=== PATIENT | female | born 1955 | race Caucasian/White ===

== ENCOUNTER 2016-10-04 13:13 | Inpatient (IN) | payer OTHER ==
--- NOTE | 2016-10-04 14:12 | ED ---
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 Daughter states she lives at home currently with the patient's but is unable to care for herself anymore. She has a history of dementia associated with Quitman's. She's been declining recently. She has had difficutly swallowing recently and decreased oral intake due to progression of the disease. The patient denies any chest pain or shortness of breath. She does have multiple bruises after her recent falls. Daughter states she fell 4 times today multiple times over the past few weeks. Daughter denies any known loss of consciousness with falls. She is not currently blood thinners. - Related Data Home Medications Medication Instructions Recorded Confirmed ALPRAZolam [Xanax] 1 mg PO TID 12/03/15 10/04/16 Venlafaxine HCl ER [Effexor Xr] 150 mg PO DAILY 12/03/15 10/04/16 Allergies Allergy/AdvReac Type Severity Reaction Status Date / Time Horse/Equine Containing Allergy Unknown Verified 10/04/16 13:56 Products Childhood Penicillins Allergy Unknown Verified 10/04/16 13:56 Childhood Review of Systems ROS Statement: Those systems with pertinent positive or pertinent negative responses have been documented in the HPI. ROS Other: All systems not noted in ROS Statement are negative. Past Medical History Additional Past Medical History / Comment(s): Quitman's History of Any Multi-Drug Resistant Organisms: None Reported Past Surgical History: Appendectomy, Bariatric Surgery, Cholecystectomy, Orthopedic Surgery, Tubal Ligation Past Psychological History: Anxiety Smoking Status: Current every day smoker Past Alcohol Use History: None Reported Past Drug Use History: None Reported General Exam - General Exam Comments Initial Comments: General: Awake and Alert. No acute distress. Does not appear acutely ill. Appears older than stated age. Eyes: MISBAH, EOM intact. No nystagmus. No scleral icterus. HENT: Atraumatic, normocephalic. Mucous membranes moist. Trachea midline. No hemotympanum. No epistaxis or septal hematoma. Neck: The neck is supple, there is no JVD. No posterior neck tenderness. Cardiovascular: Regular rate and rhythm. No murmur, rub, or gallop is appreciated. Distal pulses intact. Respiratory: Lungs are clear to auscultation bilaterally. No wheezes, rales, rhonchi. No respiratory distress. Gastrointestinal: Soft, Nontender. No rebound or guarding. Non-distended. No masses or organomegaly noted. No CVA tenderness. Musculoskeletal: No tenderness. Normal ROM. No gross deformity. No strength deficits. Neurological: A&Ox2 - baseline per daughter. CN II-XII grossly intact, There are no obvious motor or sensory deficits. Coordination appears grossly intact. Speech is normal. Mild choreiform movements of the right upper extremity and face. Skin: Skin is warm and dry and no rashs. There are multiple bruises over the body. She has a bruise to her right chin as well as her left forehead with small hematoma associated. Psychiatric: Cooperative, appropriate mood & affect, normal judgment. Limitations: physical limitation Course Vital Signs 10/04/16 10/04/16 13:20 14:19 Temperature 98.1 F 97.2 F L Pulse Rate 83 73 Respiratory 18 16 Rate Blood Pressure 118/59 134/68 O2 Sat by Pulse 95 99 Oximetry EKG Findings - EKG Comments: EKG Findings:: EKG 15:13. Sinus rhythm. Rate 72. Normal axis. No STEMI. Nonspecific EKG. Medical Decision Making - Medical Decision Making 60-year-old female with history of Quitman's chorea presenting after multiple falls at home. Daughter states she had 4 falls at home today. She's had other falls over the past few weeks as well. She has several contusions on her head likely secondary to recent falls. No evidence of gross deformity on MSK exam. Patient denies any active pain at this time but is a poor historian secondary to her dementia. She does not appear to meet for trauma activation at this time. Lab work was stable CBC, stable BMP. Initial troponin negative. Chest x-ray no acute process. Evidence of prior right rib injury. CT head reviewed with left cerebellar meningioma which appears similar to prior CT head. No acute intracranial hemorrhage. Due to worsening condition, decline in ability to swallow, and unstable gait, plan for admission. I spoke with Dr. Shah, agrees with plan for admission. - Lab Data Result diagrams: 10/04/16 14:20 10/04/16 14:20 Lab Results 10/04/16 10/04/16 10/04/16 Range/Units 14:20 14:20 14:20 WBC 8.3 (3.8-10.6) k/uL RBC 4.05 (3.80-5.40) m/uL Hgb 12.2 (11.4-16.0) gm/dL Hct 38.9 (34.0-46.0) % MCV 96.1 (80.0-100.0) fL MCH 30.1 (25.0-35.0) pg MCHC 31.3 (31.0-37.0) g/dL RDW 14.1 (11.5-15.5) % Plt Count 327 (150-450) k/uL Neutrophils % 66 % Lymphocytes % 23 % Monocytes % 7 % Eosinophils % 2 % Basophils % 1 % Neutrophils # 5.5 (1.3-7.7) k/uL Lymphocytes # 1.9 (1.0-4.8) k/uL Monocytes # 0.5 (0-1.0) k/uL Eosinophils # 0.2 (0-0.7) k/uL Basophils # 0.1 (0-0.2) k/uL Hypochromasia Slight Sodium 141 (137-145) mmol/L Potassium 4.2 (3.5-5.1) mmol/L Chloride 108 H (98-107) mmol/L Carbon Dioxide 27 (22-30) mmol/L Anion Gap 6 mmol/L BUN 18 H (7-17) mg/dL Creatinine 0.55 (0.52-1.04) mg/dL Est GFR (MDRD) Af Amer >60 (>60 ml/min/1.73 sqM) Est GFR (MDRD) Non-Af >60 (>60 ml/min/1.73 sqM) Glucose 78 (74-99) mg/dL Calcium 8.7 (8.4-10.2) mg/dL Troponin I <0.012 (0.000-0.034) ng/mL - EKG Data -: EKG Interpreted by Me EKG shows normal: sinus rhythm Rate: normal - Radiology Data Radiology results: report reviewed, image reviewed Disposition Clinical Impression: Unsteady gait, Fall, Quitman chorea, Dementia, Head contusion, Dysphagia Disposition: ADMITTED IP TO THIS [facility] Condition: Stable Decision to Admit Reason: Admit from EC
[2016-10-04 14:37] LABS: Basophils # (A) 0.1 k/uL (0-0.2); Basophils % (A) 1 %; CH 29.8; CHCM 31.1; Eosinophils # (A) 0.2 k/uL (0-0.7); Eosinophils % (A) 2 %; HCT 38.9 % (34.0-46.0); HDW 2.52; HGB 12.2 gm/dL (11.4-16.0); Hypochromasia Slight; Luc % (Auto) 1; Lymphocytes # (A) 1.9 k/uL (1.0-4.8); Lymphocytes % (A) 23 %; MCH 30.1 pg (25.0-35.0); MCHC 31.3 g/dL (31.0-37.0); MCV 96.1 fL (80.0-100.0); Mean Platelet Volume 7.1; Monocytes # (A) 0.5 k/uL (0-1.0); Monocytes % (A) 7 %; Neutrophils # (A) 5.5 k/uL (1.3-7.7); Neutrophils % (A) 66 %; RBC 4.05 m/uL (3.80-5.40); RDW 14.1 % (11.5-15.5); WBC 8.3 k/uL (3.8-10.6); WBC (Perox) 8.29
[2016-10-04] MEDS ORDERED: ASPIRIN 81 MG CHEW PO STA ×2 (14:38→15:40)
[2016-10-04 14:49] LABS: Anion Gap 6 mmol/L; Blood Urea Nitrogen 18 mg/dL (7-17); Calcium 8.7 mg/dL (8.4-10.2); Carbon Dioxide 27 mmol/L (22-30); Chloride 108 mmol/L (98-107); Glucose 78 mg/dL (74-99); Non-African American GFR(MDRD) >60 (>60 ml/min/1.73 sqM); Potassium 4.2 mmol/L (3.5-5.1); Sodium 141 mmol/L (137-145)
--- NOTE | 2016-10-04 15:03 | CT ---
EXAMINATION TYPE: CT brain wo con DATE OF EXAM: 10/04/2016 2:49 PM HISTORY: Fall with Left frontal injury CT DLP: 1108.4 mGycm. Automated Exposure Control for Dose Reduction was Utilized. TECHNIQUE: CT scan of the head is performed without contrast. COMPARISON: CT scan of brain December 03, 2015.. FINDINGS: There is no acute intracranial hemorrhage or midline shift identified. There is diffuse v entricular and sulcal prominence consistent with diffuse age-related cerebral atrophy. There is low- attenuation in the periventricular white matter consistent with chronic small vessel ischemic change. There is partially calcified left cerebellar extra-axial mass causing scalloping of the inner david n of the calvarium, probable meningioma measuring 1.1 x 1.2 cm on axial image 10 stable or slightly l ess prominent versus prior study. Possible more superior hyperdense lesion on prior study is less wel l-seen on current study. Both lesions can be better assessed with MRI if desired. Fourth ventricle re panchito midline on current study. The globes are intact and the visualized sinuses are clear. The helder varium is intact. Hyperostosis frontalis is redemonstrated. IMPRESSION: No acute intracranial hemorrhage or midline shift. There is mild to moderate diffuse ag e-related cerebral atrophy and mild chronic small vessel ischemic change redemonstrated without signi ficant change from prior study seen. Probable posterior fossa meningioma(s) redemonstrated, MRI follo w-up or correlation advised if has not been performed at outside institution.
--- NOTE | 2016-10-04 15:09 | XR ---
EXAMINATION TYPE: XR chest 2V DATE OF EXAM: 10/04/2016 3:02 PM COMPARISON: 12/03/2015 TECHNIQUE: PA and lateral views submitted. HISTORY: Cough FINDINGS: The lungs are clear and there is no pneumothorax, pleural effusion, or focal pneumonia. Chronic rib deformity on the right noted. The heart is prominent. No overt failure. Hypertrophic change of the s pine noted. IMPRESSION: 1. No acute process. 2. Deformity of the right posterior rib cage likely the basis of previous trauma correlate clinically to exclude osseous lesion. Not clearly seen on previous chest x-ray.
[2016-10-04] MEDS ORDERED: NALOXONE 0.4 MG/ML 1 ML VIAL IV PRN (16:16)
[2016-10-04] MEDS ORDERED: MORPHINE SULFATE 4 MG/ML SYRINGE IV PRN (16:16)
[2016-10-04] MEDS ORDERED: ONDANSETRON 4 MG/2 ML VIAL IVP PRN (16:16)
[2016-10-04 18:07] VITALS: BMI 27.3
[2016-10-04 18:27] LABS: Appearance,Urine Clear (Clear); Bacteria,Urine Rare /hpf; Bilirubin,Urine Negative (Negative); Glucose,Urine (UA) Negative (Negative); Ketones,Urine Negative (Negative); Leukocyte Esterase,Urine Negative (Negative); Mucus,Urine Rare /hpf; Nitrite,Urine Negative (Negative); PH, Urine 5.5 (5.0-8.0); Particle Count 1503; Protein,Urine Negative (Negative); RBC,Urine 1 /hpf (0-5); Specific Gravity,Urine 1.008 (1.001-1.035); Squamous Epithelial Cell,Urine 2 /hpf (0-4); UA Billing (MACRO vs. MICRO) MICRO; Urobilinogen,Urine <2.0 mg/dL (<2.0)
[2016-10-04] MEDS: VENLAFAXINE HCL ER 150 MG CAP PO SCH (19:34)
[2016-10-04] MEDS: ALPRAZolam 0.5 MG TAB PO SCH ×2 (19:34→22:00)
[2016-10-04] MEDS: SODIUM CHLORIDE 0.9% 1,000 ML IV SCH (19:47)
[2016-10-04] MEDS: KETOROLAC 30 MG/ML 1 ML VIAL IVP PRN (21:17)
[2016-10-05] MEDS: HEPARIN SODIUM,PORCINE 5,000 UNIT/ML 1 ML VIAL SQ SCH ×4 (00:16→23:28)
[2016-10-05] MEDS: ALPRAZolam 0.5 MG TAB PO SCH ×3 (09:22→21:51)
[2016-10-05] MEDS: NICOTINE 14MG/24HR PATCH TRANSDERM SCH ×2 (09:22→09:23)
[2016-10-05] MEDS: VENLAFAXINE HCL ER 150 MG CAP PO SCH (09:22)
[2016-10-05 09:58] LABS: Basophils # (A) 0.1 k/uL (0-0.2); Basophils % (A) 1 %; CH 29.8; CHCM 31.2; Eosinophils # (A) 0.2 k/uL (0-0.7); Eosinophils % (A) 3 %; HCT 37.2 % (34.0-46.0); HDW 2.53; HGB 11.4 gm/dL (11.4-16.0); Hypochromasia Slight; Luc # (Auto) 0.12; Luc % (Auto) 2; Lymphocytes # (A) 1.4 k/uL (1.0-4.8); Lymphocytes % (A) 19 %; MCH 29.5 pg (25.0-35.0); MCHC 30.7 g/dL (31.0-37.0); MCV 96.1 fL (80.0-100.0); Mean Platelet Volume 6.8; Monocytes # (A) 0.5 k/uL (0-1.0); Monocytes % (A) 7 %; Neutrophils # (A) 5.2 k/uL (1.3-7.7); Neutrophils % (A) 70 %; RBC 3.87 m/uL (3.80-5.40); RDW 13.9 % (11.5-15.5); WBC 7.5 k/uL (3.8-10.6)
[2016-10-05 10:20] LABS: Anion Gap 6 mmol/L; Blood Urea Nitrogen 12 mg/dL (7-17); Calcium 8.5 mg/dL (8.4-10.2); Carbon Dioxide 25 mmol/L (22-30); Chloride 108 mmol/L (98-107); Glucose 63 mg/dL (74-99); Magnesium 2.1 mg/dL (1.6-2.3); Non-African American GFR(MDRD) >60 (>60 ml/min/1.73 sqM); Phosphorous 3.5 mg/dL (2.5-4.5); Potassium 4.4 mmol/L (3.5-5.1); Sodium 139 mmol/L (137-145)
[2016-10-05] MEDS: KETOROLAC 30 MG/ML 1 ML VIAL IVP PRN ×2 (11:24→18:25)
--- NOTE | 2016-10-05 14:13 | P.HPIM ---
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 Daughter states she lives at home currently with the patient's but is unable to care for herself anymore. She has a history of dementia associated with Loving's. She's been declining recently. She has had difficulty swallowing recently and decreased oral intake due to progression of the disease. On review of systems The patient denies any chest pain or shortness of breath. She does have multiple bruises after her recent falls. Daughter states she fell 4 times today multiple times over the past few weeks. Daughter denies any known loss of consciousness with falls. She is not currently on blood thinners. Past Medical History Past Medical History: Eye Disorder, Memory Impairment, Musculoskeletal Disorder (Loving disease), Neurologic Disorder Additional Past Medical History / Comment(s): Rosenda's History of Any Multi-Drug Resistant Organisms: None Reported Past Surgical History: Appendectomy, Bariatric Surgery, Cholecystectomy, Hernia Repair, Hysterectomy, Orthopedic Surgery, Tubal Ligation Additional Past Surgical History / Comment(s): steel plate and screws in ankle, removed Past Anesthesia/Blood Transfusion Reactions: No Reported Reaction Past Psychological History: Anxiety Smoking Status: Current every day smoker Past Alcohol Use History: None Reported Past Drug Use History: None Reported - Past Family History Mother Additional Family Medical History / Comment(s): kidney failure obesity Father Additional Family Medical History / Comment(s): huntingtons Medications and Allergies Home Medications Medication Instructions Recorded Confirmed Type ALPRAZolam [Xanax] 1 mg PO TID 12/03/15 10/04/16 History Venlafaxine HCl ER [Effexor Xr] 150 mg PO DAILY 12/03/15 10/04/16 History Allergies Allergy/AdvReac Type Severity Reaction Status Date / Time Horse/Equine Containing Allergy Unknown Verified 10/04/16 13:56 Products Childhood Penicillins Allergy Unknown Verified 10/04/16 13:56 Childhood Physical Exam Vitals: Vital Signs Temp Pulse Pulse Resp BP BP Pulse Ox 10/05/16 07:00 96.7 F L 88 20 89/60 94 L 10/04/16 23:00 97.0 F L 58 L 18 111/60 96 10/04/16 14:19 97.2 F L 73 16 134/68 99 Intake and Output 10/04/16 10/05/16 10/05/16 22:59 06:59 14:59 Intake Total 540 Balance 540 Intake: Oral 540 Other: Voiding Method Bedside Commode Bedside Commode Bedside Commode Diaper Diaper Diaper # Voids 1 2 1 # Bowel Movements 1 Weight 68 kg In general patient is alert and oriented 3 in no apparent distress, speech is hard to understand HEENT head normocephalic, there is a bruise on the lower lip to the right Neck is supple no JVD no goiter no lymphadenopathy Chest exam reveals a few scattered rhonchi no wheezing Cardiac exam reveals regular heart sounds S1 and S2 with mild tachycardia no gallops no murmurs Abdomen is soft nontender no organomegaly Extremity exam reveals no edema no cyanosis or clubbing, there is recurrent movements consistant with Loving disease Results CBC & Chem 7: 10/05/16 09:24 10/05/16 09:24 Labs: Abnormal Lab Results - Last 24 Hours (Table) 10/04/16 10/04/16 10/05/16 Range/Units 14:20 18:10 09:24 MCHC 30.7 L (31.0-37.0) g/dL Chloride 108 H (98-107) mmol/L BUN 18 H (7-17) mg/dL Creatinine (0.52-1.04) mg/dL Glucose (74-99) mg/dL Urine Blood Small H (Negative) Urine Bacteria Rare H (None) /hpf Urine Mucus Rare H (None) /hpf Urine Yeast (Budding) Rare H (None) /hpf 10/05/16 Range/Units 09:24 MCHC (31.0-37.0) g/dL Chloride 108 H (98-107) mmol/L BUN (7-17) mg/dL Creatinine 0.46 L (0.52-1.04) mg/dL Glucose 63 L (74-99) mg/dL Urine Blood (Negative) Urine Bacteria (None) /hpf Urine Mucus (None) /hpf Urine Yeast (Budding) (None) /hpf Microbiology - Last 24 Hours (Table) 10/04/16 18:10 Urine Culture - Preliminary Urine,Voided Thrombosis Risk Factor Assmnt - Choose All That Apply Any of the Below Risk Factors Present?: Yes Each Factor Represents 1 point: Age 41-60 years, Medical pt on bed rest, Obesity (BMI >25) Other Risk Factors: No Other congenital or acquired thrombophilia - If yes, enter type in comment: No Thrombosis Risk Factor Assessment Total Risk Factor Score: 3 Thrombosis Risk Factor Assessment Level: Moderate Risk Assessment and Plan Plan: #1 Rosenda Chorea #2 multiple falls at home #3 early dementia #4 difficulty with swallowing #5 physical debility #6 abnormal computed tomography scan of the brain was probable posterior fossa meningioma At this time will obtain x-ray of the right ribs to rule out fracture Consult physical therapy and occupational therapy Obtain swallow evaluation Patient may need to be transferred to a long term for care
--- NOTE | 2016-10-05 15:14 | XR ---
EXAMINATION TYPE: XR ribs RT DATE OF EXAM: 10/05/2016 2:56 PM COMPARISON: Chest x-ray 10/04/1967 HISTORY: Abnormal x-ray TECHNIQUE: 4 views submitted FINDINGS: There is a deformity involving the posterior right sixth rib. No destructive change. Remain ing osseous structures intact. IMPRESSION: Findings most typical of healed rib fracture.
[2016-10-05] MEDS: SODIUM CHLORIDE 0.9% 1,000 ML IV SCH (16:10)
[2016-10-06] MEDS: KETOROLAC 30 MG/ML 1 ML VIAL IVP PRN ×3 (02:34→16:09)
--- NOTE | 2016-10-06 08:56 | CONS ---
DATE OF CONSULTATION: 10/05/2016 CHIEF COMPLAINT: [place]'s chorea. HISTORY OF PRESENT ILLNESS: Mrs. Banerjee is a 60-year-old female who has history of Bergenfield's chorea. The patient has a long-standing history of significant choreiform movements and has been having worsening dementia symptoms over the past several years. The patient was brought into [facility] Emergency Room because she has been having multiple falls. She currently lives at home with her . The family has been unable to care for her. More recently, she has been having more confusion and difficulty swallowing. The patient has fallen 4 times over the past 2 weeks. According to the chart, no head injuries occurred. A CT scan of the brain was done, which showed generalized atrophy and small vessel ischemic changes. I did review the CT scan of the brain imaging and there is also significant atrophy of bilateral caudate nucleus, consistent with Rosenda's chorea. Her CBC, urinalysis, cardiac enzymes, and basic metabolic profile were all reviewed and were normal. At the time of my evaluation, the patient is lying in her bed and continues to have significant choreiform movements in all 4 extremities and in the face. She is currently on fall precautions and ambulates to the bathroom only with nursing assistance. PAST MEDICAL HISTORY: Rosenda's chorea, dementia, history of appendectomy, bariatric surgery, cholecystectomy, hernia repair, hysterectomy, tubal ligation, orthopedic surgeries, anxiety disorder. SOCIAL HISTORY: The patient is a current every day smoker. There is no history of any alcohol or drug use. FAMILY HISTORY: Positive for renal failure and Bergenfield's disease. HOME MEDICATIONS: Reviewed in the chart. ALLERGIES: PENICILLIN and EQUINE CONTAINING PRODUCTS. REVIEW OF SYSTEMS: As mentioned above and otherwise negative. PHYSICAL EXAM: Vital signs show a temperature of 96.1, pulse 76, respirations 20, blood pressure 114/59. GENERAL APPEARANCE: The patient is a well-developed female who has significant choreiform movements in all 4 extremities. HEENT: Normocephalic with superficial abrasions seen in the right chin and lip region. Neck is supple with no masses felt. CARDIOVASCULAR: Regular rate and rhythm. ABDOMEN: Nontender, nondistended. Extremities showed no edema or clubbing. NEUROLOGICAL EXAM: The patient is oriented to person and place. She could not recall the year. Speech is quite dysarthric. Choreiform movements are noticed in all 4 extremities and in the tongue and facial muscles. Muscle tone is increased. No seizure-like activity is seen. IMPRESSION: 1. Bergenfield's disease. 2. Worsening chorea. 3. Gait instability with recurrent falls. 4. Dementia. RECOMMENDATIONS: The patient's symptoms appear to have significantly progressed over the past several days. Her laboratory workup showed no significant abnormalities. She is having significant choreiform movements and her dementia symptoms are consistent with her diagnosis of Bergenfield's chorea as well. Unfortunately, the patient appears to be at the end stage of the disease and this is causing her recurrent falls. The patient will need senior living placement as the patient's family is unable to care for her appropriately. No further inpatient neurological workup is needed. Continue fall precautions. I will continue to follow with you as needed. Thank you for allowing me to participate in the care of your patient. If you have any questions, please feel free to contact me.
[2016-10-06] MEDS: ALPRAZolam 0.5 MG TAB PO SCH ×3 (10:01→21:21)
[2016-10-06] MEDS: NICOTINE 14MG/24HR PATCH TRANSDERM SCH (10:02)
[2016-10-06] MEDS: VENLAFAXINE HCL ER 150 MG CAP PO SCH (10:02)
[2016-10-06] MEDS: HEPARIN SODIUM,PORCINE 5,000 UNIT/ML 1 ML VIAL SQ SCH ×3 (10:02→23:40)
[2016-10-06 10:05] LABS: CH 29.9; CHCM 31.1; HCT 38.2 % (34.0-46.0); HDW 2.52; HGB 11.7 gm/dL (11.4-16.0); Hypochromasia Slight; MCH 29.6 pg (25.0-35.0); MCHC 30.7 g/dL (31.0-37.0); MCV 96.4 fL (80.0-100.0); RBC 3.96 m/uL (3.80-5.40); RDW 13.9 % (11.5-15.5); WBC 4.8 k/uL (3.8-10.6); WBC (Perox) 5.14
[2016-10-06 10:39] LABS: ALT 30 U/L (9-52); AST 31 U/L (14-36); Alkaline Phosphatase 107 U/L (38-126); Anion Gap 7 mmol/L; Blood Urea Nitrogen 9 mg/dL (7-17); Calcium 8.7 mg/dL (8.4-10.2); Carbon Dioxide 26 mmol/L (22-30); Chloride 106 mmol/L (98-107); Glucose 76 mg/dL (74-99); Non-African American GFR(MDRD) >60 (>60 ml/min/1.73 sqM); Potassium 4.6 mmol/L (3.5-5.1); Sodium 139 mmol/L (137-145); Total Bilirubin 0.5 mg/dL (0.2-1.3); Total Protein 5.8 g/dL (6.3-8.2)
[2016-10-06 13:25] LABS: Add Differential Manual Differential
[2016-10-06 13:27] LABS: Nucleated Red Blood Cells 0 /100 WBC (0-0); Total Cells Counted 100
[2016-10-06] MEDS: SODIUM CHLORIDE 0.9% 1,000 ML IV SCH (17:25)
[2016-10-07] MEDS: ALPRAZolam 0.5 MG TAB PO SCH ×3 (07:58→21:59)
[2016-10-07] MEDS: HEPARIN SODIUM,PORCINE 5,000 UNIT/ML 1 ML VIAL SQ SCH ×2 (07:58→16:08)
[2016-10-07] MEDS: NICOTINE 14MG/24HR PATCH TRANSDERM SCH (07:58)
[2016-10-07] MEDS: VENLAFAXINE HCL ER 150 MG CAP PO SCH (07:58)
--- NOTE | 2016-10-07 12:53 | P.DS ---
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 Daughter states she lives at home currently with the patient's but is unable to care for herself anymore. She has a history of dementia associated with [place]'s. She's been declining recently. She has had difficulty swallowing recently and decreased oral intake due to progression of the disease. On review of systems The patient denies any chest pain or shortness of breath. She does have multiple bruises after her recent falls. Daughter states she fell 4 times today multiple times over the past few weeks. Daughter denies any known loss of consciousness with falls. She is not currently on blood thinners. Computed tomography scan of the brain showed no acute intracranial hemorrhage or midline shift. There is mild to moderate diffuse age-related cerebral atrophy and mild chronic vessel ischemic change. Probable posterior fossa meningioma redemonstrated. Patient was seen evaluated by neurology. They reported significant cordiform movements and heard dementia symptoms are consistent with her diagnosis of [place]'s rafia. And patient appears to be at the end stage of her disease which is causing her recurrent falls. They did recommend alf placement. They do not have any further workup or medications recommended. Patient had no sniffing inhalants abnormalities in her lab work. She was evaluated by speech therapy and they're recommending an alternate diet is pured dysphagia. Patient has been up and ambulating. She'll be discharged to [facility]. We're currently waiting on insurance prior authorization. Otherwise she is medically stable and his been cleared by neurology. X-ray of the ribs were completed and it does reveal a healed fracture no acute fractures. Patient Condition at Discharge: Stable Plan - Discharge Summary New Discharge Prescriptions: ALPRAZolam [Xanax] 1 mg PO TID #90 Discharge Medication List Venlafaxine HCl ER [Effexor XR] 150 mg PO DAILY 12/03/15 [History] ALPRAZolam [Xanax] 1 mg PO TID #90 10/07/16 [Rx] Nicotine 14Mg/24Hr Patch [Habitrol] 1 patch TRANSDERM DAILY patch 10/07/16 [Rx] Follow up Appointment(s)/Referral(s): Eli Lowe DO [Primary Care Provider] - 1 Week Activity/Diet/Wound Care/Special Instructions: Diet: pured dysphagia 1 diet Activity as tolerated Patient will be discharged to [facility]. Dr. Lopez to follow at [facility]CF Discharge Disposition: TRANSFER TO SNF/ECF
[2016-10-07] MEDS: SODIUM CHLORIDE 0.9% 1,000 ML IV SCH (16:34)
[2016-10-07] MEDS: KETOROLAC 30 MG/ML 1 ML VIAL IVP PRN (18:12)
[2016-10-08] MEDS: HEPARIN SODIUM,PORCINE 5,000 UNIT/ML 1 ML VIAL SQ SCH ×4 (00:03→23:12)
[2016-10-08] MEDS: KETOROLAC 30 MG/ML 1 ML VIAL IVP PRN ×2 (04:31→23:10)
[2016-10-08] MEDS: ALPRAZolam 0.5 MG TAB PO SCH ×3 (09:07→23:10)
[2016-10-08] MEDS: VENLAFAXINE HCL ER 150 MG CAP PO SCH (09:07)
[2016-10-08] MEDS: ACETAMINOPHEN TAB 325 MG TAB PO PRN (09:07)
[2016-10-08] MEDS: NICOTINE 14MG/24HR PATCH TRANSDERM SCH (09:08)
--- NOTE | 2016-10-08 15:13 | P.PN ---
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 Daughter states she lives at home currently with the patient's but is unable to care for herself anymore. She has a history of dementia associated with [place]'s. She's been declining recently. She has had difficulty swallowing recently and decreased oral intake due to progression of the disease. Computed tomography scan of the brain showed no acute intracranial hemorrhage or midline shift. There is mild to moderate diffuse age-related cerebral atrophy and mild chronic vessel ischemic change. Probable posterior fossa meningioma redemonstrated. Patient was seen evaluated by neurology. They reported significant cordiform movements and heard dementia symptoms are consistent with her diagnosis of [place]'s rafia. And patient appears to be at the end stage of her disease which is causing her recurrent falls. They did recommend [facility] placement. They do not have any further workup or medications recommended. Patient was initially discharged yesterday to go to [facility]. However both [facility] and [facility] refused long-term placement for patient because her insurance refused to pay. Patient's family is unable to provide care for patient. Social work is involved working on placement Objective - Vital Signs Vital signs: Vital Signs Temp 97.4 F L 10/08/16 07:00 Pulse 55 L 10/08/16 07:00 Resp 18 10/08/16 07:00 BP 102/56 10/08/16 07:00 Pulse Ox 96 10/08/16 07:00 Intake & Output 10/07/16 10/08/16 10/08/16 18:59 06:59 18:59 Intake Total 360 Balance 360 Weight 68 kg Intake: Oral 360 Other: Voiding Method Bedside Commode Bedside Commode Bedside Commode Diaper Diaper Diaper # Voids 2 2 1 # Bowel Movements 0 - Exam HEENT redness and swelling noted along the lower lip to the right Head normocephalic Neck supple Lungs clear to auscultation bilaterally no wheezing or crackles Heart regular rate and rhythm S1-S2, no rub or gallop Abdomen is soft nontender nondistended positive bowel sounds no hepatosplenomegaly Extremities no edema Neuro alert and orientated to 3. Recurrent movements consistent with Middlefield 's disease - Labs CBC & Chem 7: 10/06/16 09:28 10/06/16 09:28 Assessment and Plan Plan: #1 [place] Chorea #2 multiple falls at home #3 early dementia #4 difficulty with swallowing #5 physical debility #6 abnormal computed tomography scan of the brain was probable posterior fossa meningioma. Evaluated by neurology #7 area of cellulitis below the right lip kiel Melgar Working on placement for patient I performed an examination of the patient and discussed their management with the physician Java Designer. I have reviewed the Physician Java Designer's notes and agree with the documented findings and plan of care
[2016-10-08] MEDS: SODIUM CHLORIDE 0.9% 1,000 ML IV SCH (15:44)
[2016-10-09] MEDS: HEPARIN SODIUM,PORCINE 5,000 UNIT/ML 1 ML VIAL SQ SCH ×3 (07:58→23:22)
[2016-10-09] MEDS: ALPRAZolam 0.5 MG TAB PO SCH ×4 (07:58→21:37)
[2016-10-09] MEDS: VENLAFAXINE HCL ER 150 MG CAP PO SCH (07:58)
[2016-10-09] MEDS: NICOTINE 14MG/24HR PATCH TRANSDERM SCH (08:01)
--- NOTE | 2016-10-09 09:45 | P.PN ---
Subjective 60-year-old female seen and evaluated. No new events. 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 Nursing reports patient has poor IV access. 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 Daughter states she lives at home currently with the patient's but is unable to care for herself anymore. history of dementia associated with Rosenda's. She's been declining recently. She has had difficulty swallowing recently and decreased oral intake due to progression of the disease. Computed tomography scan of the brain showed no acute intracranial hemorrhage or midline shift. There is mild to moderate diffuse age-related cerebral atrophy and mild chronic vessel ischemic change. Probable posterior fossa meningioma redemonstrated. Patient was seen evaluated by neurology. They reported significant cordiform movements and heard dementia symptoms are consistent with her diagnosis of Rockcastle's rafia. And patient appears to be at the end stage of her disease which is causing her recurrent falls. They did recommend prison placement. They do not have any further workup or medications recommended. Patient was initially discharged october 07 to go to [facility]. However both [facility] and [facility] refused long-term placement for patient because her insurance refused to pay. Patient's family is unable to provide care for patient. Social work is involved working on placement Objective - Vital Signs Vital signs: Vital Signs Temp 98.2 F 10/09/16 07:00 Pulse 64 10/09/16 07:00 Resp 22 10/09/16 07:00 BP 110/74 10/09/16 07:00 Pulse Ox 95 10/09/16 07:00 Intake & Output 10/08/16 10/09/16 10/09/16 18:59 06:59 18:59 Intake Total 600 240 Balance 600 240 Intake: Oral 600 240 Other: Voiding Method Bedside Commode Bedside Commode Diaper Diaper # Voids 1 2 # Bowel Movements 0 - Exam Physical exam 60-year-old female looking older than stated age resting in bed opens eyes to verbal stimuli HEENT redness and swelling along the right lower lip improving Lungs essentially clear adequate air movement heart S1-S2 audible and regular Abdomen soft nontender not distended bowel tones present Extremities no edema noted - Labs CBC & Chem 7: 10/06/16 09:28 10/06/16 09:28 Assessment and Plan Plan: Impression Rockcastle Chorea #2 multiple falls at home #3 early dementia #4 difficulty with swallowing #5 physical debility #6 abnormal computed tomography scan of the brain was probable posterior fossa meningioma. 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 Impression and the plan of care have been dictated as directed. Teresita Perez nurse practitioner acting as a scribe for dr masterson
[2016-10-09] MEDS: ACETAMINOPHEN TAB 325 MG TAB PO PRN (16:41)
[2016-10-09] MEDS: SODIUM CHLORIDE 0.9% 1,000 ML IV SCH (16:48)
[2016-10-09] MEDS: CEFUROXIME 250 MG TAB PO SCH (21:36)
[2016-10-10] MEDS: CEFUROXIME 250 MG TAB PO SCH (08:46)
[2016-10-10] MEDS: VENLAFAXINE HCL ER 150 MG CAP PO SCH (08:46)
[2016-10-10] MEDS: HEPARIN SODIUM,PORCINE 5,000 UNIT/ML 1 ML VIAL SQ SCH ×2 (08:46→16:59)
[2016-10-10] MEDS: NICOTINE 14MG/24HR PATCH TRANSDERM SCH (08:46)
[2016-10-10] MEDS: ALPRAZolam 0.5 MG TAB PO SCH ×3 (08:46→16:59)
--- NOTE | 2016-10-10 09:24 | P.PN ---
Subjective 60-year-old female being seen and evaluated. Patient currently is resting in bed. The right lower chin area firm with significant tenderness less redness around the site upon touching the right lower chin area patient pulls away facial grimacing did note the patient ran a low-grade temp at 3:00 yesterday 99.2 current temp 97.8. 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 Daughter states she lives at home currently with the patient's but is unable to care for herself anymore. history of dementia associated with Bigfoot's. She's been declining recently. She has had difficulty swallowing recently and decreased oral intake due to progression of the disease. Computed tomography scan of the brain showed no acute intracranial hemorrhage or midline shift. There is mild to moderate diffuse age-related cerebral atrophy and mild chronic vessel ischemic change. Probable posterior fossa meningioma redemonstrated. Patient was seen evaluated by neurology. They reported significant cordiform movements and heard dementia symptoms are consistent with her diagnosis of Bigfoot's rafia. And patient appears to be at the end stage of her disease which is causing her recurrent falls. They did recommend [facility] placement. They do not have any further workup or medications recommended. Patient was initially discharged october 07 to go to [facility]. However both [facility] and [facility] refused long-term placement for patient because her insurance refused to pay. Patient's family is unable to provide care for patient. Social work is involved working on placement Objective - Vital Signs Vital signs: Vital Signs Temp 97.8 F 10/10/16 07:00 Pulse 54 L 10/10/16 07:00 Resp 20 10/10/16 07:00 BP 133/69 10/10/16 07:00 Pulse Ox 96 10/10/16 07:00 Intake & Output 10/09/16 10/10/16 10/10/16 18:59 06:59 18:59 Intake Total 480 300 120 Balance 480 300 120 Intake: Oral 480 300 120 Other: Voiding Method Bedside Commode Bedside Commode # Voids 2 1 - Exam Physical exam 60-year-old female looking older than stated age resting in bed opens eyes to verbal stimuli HEENT significant tenderness to the right lower chin nodule area swollen less redness around the site facial grimacing with light touch to the site Lungs essentially clear adequate air movement heart S1-S2 audible and regular Abdomen soft nontender not distended bowel tones present Extremities no edema noted - Labs CBC & Chem 7: 10/06/16 09:28 10/06/16 09:28 Assessment and Plan Plan: Impression Bigfoot Chorea #2 multiple falls at home #3 early dementia #4 difficulty with swallowing #5 physical debility #6 abnormal computed tomography scan of the brain was probable posterior fossa meningioma. 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 Impression and the plan of care have been dictated as directed. Teresita Perez nurse practitioner acting as a scribe for dr masterson
--- NOTE | 2016-10-10 12:49 | P.CONS ---
History of Present Illness - Reason for Consult Consult date: 10/10/16 - Chief Complaint Weakness and falls - History of Present Illness 60-year-old female with known history of Rosenda's chorea diagnosed back when she was in her 30s. She's had some consistent decline of her status but apparently more recently has been having increasing amounts of choreiform movements resulting in falls. She's also developed some worsening dementia. She was brought to hospital with concerns to falls, swelling to the right lower lip area which is painful. Decreasing intake. Increasing weakness. She has been seen by neurology and review the computed tomography scan does show evidence of the caudate nucleus atrophy. Because of the swelling and infection to the right lower lip at the infectious diseases consultation was requested. The patient is able to relate only little history. Review of Systems ROS unobtainable: due to mental status Past Medical History Past Medical History: Eye Disorder, Memory Impairment, Musculoskeletal Disorder (Rosenda disease), Neurologic Disorder Additional Past Medical History / Comment(s): Nelson's History of Any Multi-Drug Resistant Organisms: None Reported Past Surgical History: Appendectomy, Bariatric Surgery, Cholecystectomy, Hernia Repair, Hysterectomy, Orthopedic Surgery, Tubal Ligation Additional Past Surgical History / Comment(s): steel plate and screws in ankle, removed Past Anesthesia/Blood Transfusion Reactions: No Reported Reaction Past Psychological History: Anxiety Additional Psychological History / Comment(s): Positive tobacco use. No alcohol use. Cared for in the family home by the and caregivers. It is reported that is not going well. No animal exposures. No experience. No work experience Smoking Status: Current every day smoker Past Alcohol Use History: None Reported Past Drug Use History: None Reported - Past Family History Mother Additional Family Medical History / Comment(s): kidney failure obesity Father Additional Family Medical History / Comment(s): huntingtons Medications and Allergies Home Medications and Allergies Comment(s): Current Medications Acetaminophen (Tylenol Tab) 650 mg PO Q6HR PRN PRN Reason: Mild Pain or Fever > 100.5 Last Admin: 10/09/16 16:41 Dose: 650 mg Alprazolam (Xanax) 1 mg PO QID [facility] Last Admin: 10/10/16 08:46 Dose: 1 mg Heparin Sodium (Porcine) (Heparin) 5,000 unit SQ Q8HR [facility] Last Admin: 10/10/16 08:46 Dose: 5,000 unit Sodium Chloride (Saline 0.9%) 1,000 mls @ 20 mls/hr IV .Q24H [facility] Last Admin: 10/09/16 16:48 Dose: Not Given Ertapenem 1 gm/ Sodium (Chloride) 50 mls @ 100 mls/hr IVPB DAILY [facility] Naloxone HCl (Narcan) 0.2 mg IV Q2M PRN PRN Reason: Opioid Reversal Nicotine (Habitrol 14mg/24hr Patch) 1 patch TRANSDERM DAILY [facility] Last Admin: 10/10/16 08:46 Dose: Not Given Ondansetron HCl (Zofran) 4 mg IVP Q8HR PRN PRN Reason: Nausea And Vomiting Venlafaxine HCl (Effexor Xr) 150 mg PO DAILY [facility] Last Admin: 10/10/16 08:46 Dose: 150 mg Home Medications Medication Instructions Recorded Confirmed Type Venlafaxine HCl ER [Effexor XR] 150 mg PO DAILY 12/03/15 10/04/16 History Allergies Allergy/AdvReac Type Severity Reaction Status Date / Time Horse/Equine Containing Allergy Unknown Verified 10/04/16 13:56 Products Childhood Penicillins Allergy Unknown Verified 10/04/16 13:56 Childhood Physical Exam Vitals: Vital Signs Temp Pulse Resp BP Pulse Ox 10/10/16 07:00 97.8 F 54 L 20 133/69 96 10/09/16 23:00 96.7 F L 58 L 20 100/66 95 10/09/16 15:00 99.2 F 76 22 92/63 97 Intake and Output 10/09/16 10/10/16 10/10/16 22:59 06:59 14:59 Intake Total 200 100 120 Balance 200 100 120 Intake: Oral 200 100 120 Other: Voiding Method Bedside Commode Bedside Commode Bedside Commode # Voids 1 2 # Bowel Movements 0 60-year-old woman who appears to be older than her stated age appears to be uncomfortable. HEENT: Anicteric conjunctiva are pink and moist nasal mucosa grossly intact without significant lesions, there is no thrush. Dentition is very poor. There is evidence of a significant area of localized swelling on the right lower lip. It is distinctly tender. It is not fluctuant. There HE does not have thrush or lesions. There is no significant swelling to the right neck. There is no lymphadenopathy to the right neck and her other areas. Neck: The neck is supple without significant lymphadenopathy or thyromegaly. Lungs: There is symmetrical air entry. Expiratory wheezes are scattered. No karel bronchial sounds. No dullness is noted Heart: Regular rate and rhythm with an audible S1-S2, no S3 no S4. There is no significant murmur click or rub, PMI was nondisplaced. Abdomen: Positive bowel sounds soft and nontender without palpable masses or organomegaly. There was no guarding or rebound. Extremities: The upper extremities have excellent pulses they are symmetric, no significant petechiae or telangiectasia. No splinter hemorrhages were noted. The lower extremities are free from significant edema. The peripheral pulses were 2+ and symmetric. Neuro: She is awake attempts to respond. Occasionally seems to generate an answer that seems appropriate for the question. She is hungry and would like her lunch. She appears in no difficulty of choking on her secretions. Does have the difficulty with coronary form motions of her face neck and extremities. Results CBC & Chem 7: 10/06/16 09:28 10/06/16: Labs: Laboratory Results WBC 4.8 k/uL (3.8-10.6) 10/06/16: RBC 3.96 m/uL (3.80-5.40) 10/06/16: Hgb 11.7 gm/dL (11.4-16.0) 10/06/16: Hct 38.2 % (34.0-46.0) 10/06/16: MCV 96.4 fL (80.0-100.0) 10/06/16: MCH 29.6 pg (25.0-35.0) 10/06/16: MCHC 30.7 g/dL (31.0-37.0) L 10/06/16: RDW 13.9 % (11.5-15.5) 10/06/16: Plt Count 305 k/uL (150-450) 10/06/16 09: Neutrophils % 70 % 10/05/16 09:24 Neutrophils % (Manual) 54.0 % 10/06/16:28 Lymphocytes % 19 % 10/05/16:24 Lymphocytes % (Manual) 36.0 % 05/17/17 09:28 Monocytes % 7 % 10/05/16 09:24 Monocytes % (Manual) 6.0 % 10/06/16 09:28 Eosinophils % 3 % 10/05/16 09:24 Eosinophils % (Manual) 4.0 % 10/06/16 09:28 Basophils % 1 % 10/05/16 09:24 Neutrophils # 5.2 k/uL (1.3-7.7) 10/05/16 09:24 Neutrophils # (Manual) 2.6 k/uL (1.3-7.7) 10/06/16 09:28 Lymphocytes # 1.4 k/uL (1.0-4.8) 10/05/16 09:24 Lymphocytes # (Manual) 1.7 k/uL (1.0-4.8) 10/06/16 09:28 Monocytes # 0.5 k/uL (0-1.0) 10/05/16 09:24 Monocytes # (Manual) 0.3 k/uL (0-1.0) 10/06/16 09:28 Eosinophils # 0.2 k/uL (0-0.7) 10/05/16 09:24 Eosinophils # (Manual) 0.2 k/uL (0-0.7) 10/06/16 09:28 Basophils # 0.1 k/uL (0-0.2) 10/05/16 09:24 Nucleated RBCs 0 /100 WBC (0-0) 10/06/16 09:28 Hypochromasia Slight 10/06/16 09:28 Poikilocytosis (manual Present 10/06/16 09:28 Anisocytosis (manual) Present 10/06/16 09:28 Sodium 139 mmol/L (137-145) 10/06/16 09:28 Potassium 4.6 mmol/L (3.5-5.1) 10/06/16 09:28 Chloride 106 mmol/L (98-107) 10/06/16 09:28 Carbon Dioxide 26 mmol/L (22-30) 10/06/16 09:28 Anion Gap 7 mmol/L 10/06/16 09:28 BUN 9 mg/dL (7-17) 10/06/16 09:28 Creatinine 0.44 mg/dL (0.52-1.04) L 10/06/16 09:28 Est GFR (MDRD) Af Amer >60 (>60 ml/min/1.73 sqM) 10/06/16 09:28 Est GFR (MDRD) Non-Af >60 (>60 ml/min/1.73 sqM) 10/06/16 09:28 Glucose 76 mg/dL (74-99) 10/06/16 09:28 Calcium 8.7 mg/dL (8.4-10.2) 10/06/16 09:28 Phosphorus 3.5 mg/dL (2.5-4.5) 10/05/16 09:24 Magnesium 2.1 mg/dL (1.6-2.3) 10/05/16 09:24 Total Bilirubin 0.5 mg/dL (0.2-1.3) 10/06/16 09:28 AST 31 U/L (14-36) 10/06/16 09:28 ALT 30 U/L (9-52) 10/06/16 09:28 Alkaline Phosphatase 107 U/L (38-126) 10/06/16 09:28 Troponin I <0.012 ng/mL (0.000-0.034) 10/04/16 14:20 Total Protein 5.8 g/dL (6.3-8.2) L 10/06/16 09:28 Albumin 3.1 g/dL (3.5-5.0) L 10/06/16 09:28 Urine Color Light Yellow 10/04/16 18:10 Urine Appearance Clear (Clear) 10/04/16 18:10 Urine pH 5.5 (5.0-8.0) 10/04/16 18:10 Ur Specific [place] 1.008 (1.001-1.035) 10/04/16 18:10 Urine Protein Negative (Negative) 10/04/16 18:10 Urine Glucose (UA) Negative (Negative) 10/04/16 18:10 Urine Ketones Negative (Negative) 10/04/16 18:10 Urine Blood Small (Negative) H 10/04/16 18:10 Urine Nitrite Negative (Negative) 10/04/16 18:10 Urine Bilirubin Negative (Negative) 10/04/16 18:10 Urine Urobilinogen <2.0 mg/dL (<2.0) 10/04/16 18:10 Ur Leukocyte Esterase Negative (Negative) 10/04/16 18:10 Urine RBC 1 /hpf (0-5) 10/04/16 18:10 Ur Squamous Epith Cells 2 /hpf (0-4) 10/04/16 18:10 Urine Bacteria Rare /hpf (None) H 10/04/16 18:10 Urine Mucus Rare /hpf (None) H 10/04/16 18:10 Urine Yeast (Budding) Rare /hpf (None) H 10/04/16 18:10 Microbiology 10/04/16 18:10 Urine,Voided Urine Culture - Final Assessment and Plan (1) Cutaneous abscess of face Narrative/Plan: 60-year-old woman presents to Hospital with increasing weakness and falls at home. She has a history of Nelson's chorea and appears to have progressive liver disease. Her dementia is also worsening. He may be having some increasing difficulties with her nutrition. Nutritional supplements are requested as a pre-albumin given it appears that she does have evidence of modest protein calorie malnutrition at this time. There is evidence of a an area of erythema and induration to the right lower lip area. It is exquisitely tender. There is concern this could be related to the oral cavity. This was given her somewhat poor oral hygiene. Consequently antibiotic therapy as requested. The patient lost her IV. If ideas reestablish ertapenem 1 g IV piggyback daily will be given. If no IV available this can be given intramuscularly. The site appears to more of a phlegmon at this time. If it becomes an abscess may require surgical incision and drainage to this area. The urinalysis is mildly abnormal but urine culture does not appear to be positive at this time. Status: Acute (2) Rosenda chorea Status: Acute (3) Unsteady gait Status: Acute
[2016-10-10] MEDS: ERTAPENEM 1 GM in SODIUM CHLORIDE 0.9% 50 ML IVPB SCH (13:26)
[2016-10-10] MEDS: HYDROmorphone 1 MG/ML 1 ML SYRINGE IVP PRN ×2 (14:30→20:08)
[2016-10-10] MEDS: ACETAMINOPHEN TAB 325 MG TAB PO PRN (17:01)
[2016-10-10] MEDS: SODIUM CHLORIDE 0.9% 1,000 ML IV SCH (17:39)
[2016-10-11] MEDS: ALPRAZolam 0.5 MG TAB PO SCH ×5 (00:04→23:33)
[2016-10-11] MEDS: HEPARIN SODIUM,PORCINE 5,000 UNIT/ML 1 ML VIAL SQ SCH ×4 (00:05→23:34)
[2016-10-11] MEDS: ERTAPENEM 1 GM in SODIUM CHLORIDE 0.9% 50 ML IVPB SCH (08:33)
[2016-10-11] MEDS: NICOTINE 14MG/24HR PATCH TRANSDERM SCH (08:33)
[2016-10-11] MEDS: VENLAFAXINE HCL ER 150 MG CAP PO SCH (08:33)
[2016-10-11 09:13] LABS: Basophils # (A) 0.1 k/uL (0-0.2); Basophils % (A) 1 %; CH 29.8; CHCM 31.4; Eosinophils # (A) 0.3 k/uL (0-0.7); Eosinophils % (A) 3 %; HCT 39.2 % (34.0-46.0); HDW 2.51; HGB 12.3 gm/dL (11.4-16.0); Hypochromasia Slight; Luc # (Auto) 0.12; Luc % (Auto) 1; Lymphocytes # (A) 2.3 k/uL (1.0-4.8); Lymphocytes % (A) 26 %; MCH 29.9 pg (25.0-35.0); MCHC 31.3 g/dL (31.0-37.0); MCV 95.3 fL (80.0-100.0); Mean Platelet Volume 7.8; Monocytes # (A) 0.6 k/uL (0-1.0); Monocytes % (A) 7 %; Neutrophils # (A) 5.4 k/uL (1.3-7.7); Neutrophils % (A) 62 %; RBC 4.11 m/uL (3.80-5.40); RDW 14.1 % (11.5-15.5); WBC 8.7 k/uL (3.8-10.6)
[2016-10-11 10:46] LABS: ALT 40 U/L (9-52); AST 29 U/L (14-36); Alkaline Phosphatase 107 U/L (38-126); Anion Gap 7 mmol/L; Blood Urea Nitrogen 18 mg/dL (7-17); Calcium 8.5 mg/dL (8.4-10.2); Carbon Dioxide 26 mmol/L (22-30); Chloride 107 mmol/L (98-107); Glucose 68 mg/dL (74-99); Non-African American GFR(MDRD) >60 (>60 ml/min/1.73 sqM); Potassium 4.8 mmol/L (3.5-5.1); Sodium 140 mmol/L (137-145); Total Bilirubin 0.5 mg/dL (0.2-1.3); Total Protein 5.7 g/dL (6.3-8.2)
[2016-10-11] MEDS: ACETAMINOPHEN TAB 325 MG TAB PO PRN (13:12)
--- NOTE | 2016-10-11 14:06 | P.PN ---
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 Daughter states she lives at home currently with the patient's but is unable to care for herself anymore. She has a history of dementia associated with Sebastian's. She's been declining recently. She has had difficulty swallowing recently and decreased oral intake due to progression of the disease. Computed tomography scan of the brain showed no acute intracranial hemorrhage or midline shift. There is mild to moderate diffuse age-related cerebral atrophy and mild chronic vessel ischemic change. Probable posterior fossa meningioma redemonstrated. Patient was seen evaluated by neurology. They reported significant cordiform movements and heard dementia symptoms are consistent with her diagnosis of Sebastian's rafia. And patient appears to be at the end stage of her disease which is causing her recurrent falls. They did recommend [facility] placement. They do not have any further workup or medications recommended. Patient was initially discharged yesterday to go to ECF. However both [facility] and [facility] refused long-term placement for patient because her insurance refused to pay. Patient's family is unable to provide care for patient. Social work is involved working on placement 10/11/2016 patient is still complaining of sore/abscess on the right lip. She reports that it hurts. She's followed by infectious disease. They change antibiotics to Invanz. Patient is not a candidate for ECF placement. Insurance refused to pay. Discussed with case picker. At this time patient's will take be taking her home when she is discharged Objective - Vital Signs Vital signs: Vital Signs Temp 98.2 F 10/11/16 07:00 Pulse 55 L 10/11/16 08:00 Resp 18 10/11/16 08:00 BP 120/62 10/11/16 07:00 Pulse Ox 97 10/11/16 07:00 Intake & Output 10/10/16 10/11/16 10/11/16 18:59 06:59 18:59 Intake Total 360 240 Output Total 1150 Balance 360 -1150 240 Weight 68 kg Intake: Oral 360 240 Output: Urine 1150 Straight 575 Other: Voiding Method Bedside Commode Bedside Commode # Voids 1 0 2 # Bowel Movements 0 0 - Exam HEENT redness and swelling noted along the lower lip to the right Head normocephalic Neck supple Lungs clear to auscultation bilaterally no wheezing or crackles Heart regular rate and rhythm S1-S2, no rub or gallop Abdomen is soft nontender nondistended positive bowel sounds no hepatosplenomegaly Extremities no edema Neuro alert and orientated to 3. Recurrent movements consistent with Rosenda 's disease - Labs CBC & Chem 7: 10/11/16 08:19 10/11/16 08:19 Labs: Abnormal Lab Results - Last 24 Hours (Table) 10/10/16 10/11/16 Range/Units 13:06 08:19 BUN 18 H (7-17) mg/dL Creatinine 0.43 L (0.52-1.04) mg/dL Glucose 68 L (74-99) mg/dL Total Protein 5.7 L (6.3-8.2) g/dL Albumin 3.1 L (3.5-5.0) g/dL Prealbumin 14 L (18-36) mg/dL Assessment and Plan Plan: #1 Sebastian Chorea #2 multiple falls at home #3 early dementia #4 difficulty with swallowing #5 physical debility #6 abnormal computed tomography scan of the brain was probable posterior fossa meningioma. Evaluated by neurology #7 abscess below the right lip : Evaluated by infectious disease. Patient antibiotics changed to Invanz. We'll consult ENT specialists for possible drainage. I performed an examination of the patient and discussed their management with the physician Academic Affairs Vice President. I have reviewed the Physician Academic Affairs Vice President's notes and agree with the documented findings and plan of care
[2016-10-11] MEDS: SODIUM CHLORIDE 0.9% 1,000 ML IV SCH ×2 (16:35→20:20)
--- NOTE | 2016-10-11 18:55 | P.GSCN ---
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 She is being treated with IV antibiotics but unfortunately the swelling is persistent. The patient is unable to express her history and current events because of her Counce's chorea. She is also unable to hold still for a significant portion of the physical examination. Much of the history I have obtained per the nursing staff. 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 Past Medical History Past Medical History: Unable to Obtain, Eye Disorder, Memory Impairment, Musculoskeletal Disorder (Counce disease), Neurologic Disorder Additional Past Medical History / Comment(s): Counce's History of Any Multi-Drug Resistant Organisms: None Reported Past Surgical History: Appendectomy, Bariatric Surgery, Cholecystectomy, Hernia Repair, Hysterectomy, Orthopedic Surgery, Tubal Ligation Additional Past Surgical History / Comment(s): steel plate and screws in ankle, removed Past Anesthesia/Blood Transfusion Reactions: No Reported Reaction Past Psychological History: Anxiety Additional Psychological History / Comment(s): Positive tobacco use. No alcohol use. Cared for in the family home by the and caregivers. It is reported that is not going well. No animal exposures. No experience. No work experience Smoking Status: Current every day smoker Past Alcohol Use History: None Reported Past Drug Use History: None Reported - Past Family History Mother Additional Family Medical History / Comment(s): kidney failure obesity Father Additional Family Medical History / Comment(s): huntingtons Medications and Allergies Home Medications Medication Instructions Recorded Confirmed Type Venlafaxine HCl ER [Effexor XR] 150 mg PO DAILY 12/03/15 10/04/16 History Allergies Allergy/AdvReac Type Severity Reaction Status Date / Time Horse/Equine Containing Allergy Unknown Verified 10/04/16 13:56 Products Childhood Penicillins Allergy Unknown Verified 10/04/16 13:56 Childhood Surgical - Exam Osteopathic Statement: *. No significant issues noted on an osteopathic structural exam other than those noted in the History and Physical/Consult. Vital Signs Temp Pulse Resp BP Pulse Ox 98.1 F 83 18 118/59 95 10/04/16 13:20 10/04/16 13:20 10/04/16 13:20 10/04/16 13:20 10/04/16 13:20 - General no distress - Eyes PERRL, normal ocular movement - ENT Patient has a 2 cm swollen right lower lip firm but compressible. Probable abscess. normal pinna, normal nares - Neck no masses, no bruits - Respiratory normal expansion - Integumentary no rash, no growths - Neurologic confused - Psychiatric no oriented to time, no oriented to person, no oriented to place, no speech is normal, no memory intact Results - Labs 10/11/16 08:19 10/11/16 08:19 Abnormal Lab Results - Last 24 Hours (Table) 10/11/16 Range/Units 08:19 BUN 18 H (7-17) mg/dL Creatinine 0.43 L (0.52-1.04) mg/dL Glucose 68 L (74-99) mg/dL Total Protein 5.7 L (6.3-8.2) g/dL Albumin 3.1 L (3.5-5.0) g/dL Diabetes panel 10/11/16 Range/Units 08:19 Sodium 140 (137-145) mmol/L Potassium 4.8 (3.5-5.1) mmol/L Chloride 107 (98-107) mmol/L Carbon Dioxide 26 (22-30) mmol/L BUN 18 H (7-17) mg/dL Creatinine 0.43 L (0.52-1.04) mg/dL Glucose 68 L (74-99) mg/dL Calcium 8.5 (8.4-10.2) mg/dL AST 29 (14-36) U/L ALT 40 (9-52) U/L Alkaline Phosphatase 107 (38-126) U/L Total Protein 5.7 L (6.3-8.2) g/dL Albumin 3.1 L (3.5-5.0) g/dL Calcium panel 10/11/16 Range/Units 08:19 Calcium 8.5 (8.4-10.2) mg/dL Albumin 3.1 L (3.5-5.0) g/dL Pituitary panel 10/11/16 Range/Units 08:19 Sodium 140 (137-145) mmol/L Potassium 4.8 (3.5-5.1) mmol/L Chloride 107 (98-107) mmol/L Carbon Dioxide 26 (22-30) mmol/L BUN 18 H (7-17) mg/dL Creatinine 0.43 L (0.52-1.04) mg/dL Glucose 68 L (74-99) mg/dL Calcium 8.5 (8.4-10.2) mg/dL Adrenal panel 10/11/16 Range/Units 08:19 Sodium 140 (137-145) mmol/L Potassium 4.8 (3.5-5.1) mmol/L Chloride 107 (98-107) mmol/L Carbon Dioxide 26 (22-30) mmol/L BUN 18 H (7-17) mg/dL Creatinine 0.43 L (0.52-1.04) mg/dL Glucose 68 L (74-99) mg/dL Calcium 8.5 (8.4-10.2) mg/dL Total Bilirubin 0.5 (0.2-1.3) mg/dL AST 29 (14-36) U/L ALT 40 (9-52) U/L Alkaline Phosphatase 107 (38-126) U/L Total Protein 5.7 L (6.3-8.2) g/dL Albumin 3.1 L (3.5-5.0) g/dL Assessment and Plan (1) Cellulitis of lip Narrative/Plan: This patient is unable to cooperate here at the bedside for a incision and drainage of a lip abscess. Her Counce's chorea is problematic. We decided to proceed forward with incision and drainage of this lip abscess in an operating room setting with the use of sedation. We will obtain a consent per the nursing staff. We will schedule this for tomorrow afternoon. Patient is to be nothing by mouth prior to surgery. Status: Acute (2) Lip abscess Status: Acute Time with Patient: Greater than 30
[2016-10-11] MEDS: HYDROmorphone 1 MG/ML 1 ML SYRINGE IVP PRN (20:46)
--- NOTE | 2016-10-11 23:15 | P.PN ---
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 She's had some consistent decline of her status but apparently more recently has been having increasing amounts of choreiform movements resulting in falls. She's also developed some worsening dementia. She was brought to hospital with concerns to falls, swelling to the right lower lip area which is painful. Decreasing intake. Increasing weakness. She has been seen by neurology and review the computed tomography scan does show evidence of the caudate nucleus atrophy. Still has pain of the lower lip. Objective - Vital Signs Vital signs: Vital Signs Temp 98.5 F 10/11/16 15:00 Pulse 75 10/11/16 17:38 Resp 19 10/11/16 17:38 BP 114/61 10/11/16 15:00 Pulse Ox 91 L 10/11/16 15:00 Intake & Output 10/11/16 10/11/16 10/12/16 06:59 18:59 06:59 Intake Total 240 Output Total 1150 600 Balance -1150 -360 Weight 68 kg Intake: Oral 240 Output: Urine 1150 600 Straight 575 Other: Voiding Method Bedside Commode # Voids 0 1 2 # Bowel Movements 0 0 - Exam 60-year-old woman who appears to be older than her stated age appears to be uncomfortable. HEENT: Anicteric conjunctiva are pink and moist nasal mucosa grossly intact without significant lesions, there is no thrush. Dentition is very poor. There is evidence of a significant area of localized swelling on the right lower lip. It is distinctly tender. It is not fluctuant. There HE does not have thrush or lesions. There is no significant swelling to the right neck. There is no lymphadenopathy to the right neck and her other areas. Neck: The neck is supple without significant lymphadenopathy or thyromegaly. Lungs: There is symmetrical air entry. Expiratory wheezes are scattered. No karel bronchial sounds. No dullness is noted Heart: Regular rate and rhythm with an audible S1-S2, no S3 no S4. There is no significant murmur click or rub, PMI was nondisplaced. Abdomen: Positive bowel sounds soft and nontender without palpable masses or organomegaly. There was no guarding or rebound. Extremities: The upper extremities have excellent pulses they are symmetric, no significant petechiae or telangiectasia. No splinter hemorrhages were noted. The lower extremities are free from significant edema. The peripheral pulses were 2+ and symmetric. Neuro: She is awake attempts to respond. Occasionally seems to generate an answer that seems appropriate for the question. She is hungry and would like her lunch. She appears in no difficulty of choking on her secretions. Does have the difficulty with coronary form motions of her face neck and extremities. - Labs CBC & Chem 7: 10/11/16 08:19 10/11/16 08:19 Labs: Abnormal Lab Results - Last 24 Hours (Table) 10/11/16 Range/Units 08:19 BUN 18 H (7-17) mg/dL Creatinine 0.43 L (0.52-1.04) mg/dL Glucose 68 L (74-99) mg/dL Total Protein 5.7 L (6.3-8.2) g/dL Albumin 3.1 L (3.5-5.0) g/dL Laboratory Results WBC 8.7 k/uL (3.8-10.6) 10/11/16 08:19 RBC 4.11 m/uL (3.80-5.40) 10/11/16 08:19 Hgb 12.3 gm/dL (11.4-16.0) 10/11/16 08:19 Hct 39.2 % (34.0-46.0) 10/11/16 08:19 MCV 95.3 fL (80.0-100.0) 10/11/16 08:19 MCH 29.9 pg (25.0-35.0) 10/11/16 08:19 MCHC 31.3 g/dL (31.0-37.0) 10/11/16 08:19 RDW 14.1 % (11.5-15.5) 10/11/16 08:19 Plt Count 289 k/uL (150-450) 10/11/16 08:19 Neutrophils % 62 % 10/11/16 08:19 Neutrophils % (Manual) 54.0 % 10/06/16 09:28 Lymphocytes % 26 % 10/11/16 08:19 Lymphocytes % (Manual) 36.0 % 10/06/16 09:28 Monocytes % 7 % 10/11/16 08:19 Monocytes % (Manual) 6.0 % 10/06/16 09:28 Eosinophils % 3 % 10/11/16 08:19 Eosinophils % (Manual) 4.0 % 10/06/16 09:28 Basophils % 1 % 10/11/16 08:19 Neutrophils # 5.4 k/uL (1.3-7.7) 10/11/16 08:19 Neutrophils # (Manual) 2.6 k/uL (1.3-7.7) 10/06/16 09:28 Lymphocytes # 2.3 k/uL (1.0-4.8) 10/11/16 08:19 Lymphocytes # (Manual) 1.7 k/uL (1.0-4.8) 10/06/16 09:28 Monocytes # 0.6 k/uL (0-1.0) 10/11/16 08:19 Monocytes # (Manual) 0.3 k/uL (0-1.0) 10/06/16 09:28 Eosinophils # 0.3 k/uL (0-0.7) 10/11/16 08:19 Eosinophils # (Manual) 0.2 k/uL (0-0.7) 10/06/16 09:28 Basophils # 0.1 k/uL (0-0.2) 10/11/16 08:19 Nucleated RBCs 0 /100 WBC (0-0) 10/06/16 09:28 Hypochromasia Slight 10/11/16 08:19 Poikilocytosis (manual Present 10/06/16 09:28 Anisocytosis (manual) Present 10/06/16 09:28 Sodium 140 mmol/L (137-145) 10/11/16 08:19 Potassium 4.8 mmol/L (3.5-5.1) 10/11/16 08:19 Chloride 107 mmol/L (98-107) 10/11/16 08:19 Carbon Dioxide 26 mmol/L (22-30) 10/11/16 08:19 Anion Gap 7 mmol/L 10/11/16 08:19 BUN 18 mg/dL (7-17) H 10/11/16 08:19 Creatinine 0.43 mg/dL (0.52-1.04) L 10/11/16 08:19 Est GFR (MDRD) Af Amer >60 (>60 ml/min/1.73 sqM) 10/11/16 08:19 Est GFR (MDRD) Non-Af >60 (>60 ml/min/1.73 sqM) 10/11/16 08:19 Glucose 68 mg/dL (74-99) L 10/11/16 08:19 Calcium 8.5 mg/dL (8.4-10.2) 10/11/16 08:19 Phosphorus 3.5 mg/dL (2.5-4.5) 10/05/16 09:24 Magnesium 2.1 mg/dL (1.6-2.3) 10/05/16 09:24 Total Bilirubin 0.5 mg/dL (0.2-1.3) 10/11/16 08:19 AST 29 U/L (14-36) 10/11/16 08:19 ALT 40 U/L (9-52) 10/11/16 08:19 Alkaline Phosphatase 107 U/L (38-126) 10/11/16 08:19 Troponin I <0.012 ng/mL (0.000-0.034) 10/04/16 14:20 Total Protein 5.7 g/dL (6.3-8.2) L 10/11/16 08:19 Albumin 3.1 g/dL (3.5-5.0) L 10/11/16 08:19 Prealbumin 14 mg/dL (18-36) L 10/10/16 13:06 Urine Color Light Yellow 10/04/16 18:10 Urine Appearance Clear (Clear) 10/04/16 18:10 Urine pH 5.5 (5.0-8.0) 10/04/16 18:10 Ur Specific [place] 1.008 (1.001-1.035) 10/04/16 18:10 Urine Protein Negative (Negative) 10/04/16 18:10 Urine Glucose (UA) Negative (Negative) 10/04/16 18:10 Urine Ketones Negative (Negative) 10/04/16 18:10 Urine Blood Small (Negative) H 10/04/16 18:10 Urine Nitrite Negative (Negative) 10/04/16 18:10 Urine Bilirubin Negative (Negative) 10/04/16 18:10 Urine Urobilinogen <2.0 mg/dL (<2.0) 10/04/16 18:10 Ur Leukocyte Esterase Negative (Negative) 10/04/16 18:10 Urine RBC 1 /hpf (0-5) 10/04/16 18:10 Ur Squamous Epith Cells 2 /hpf (0-4) 10/04/16 18:10 Urine Bacteria Rare /hpf (None) H 10/04/16 18:10 Urine Mucus Rare /hpf (None) H 10/04/16 18:10 Urine Yeast (Budding) Rare /hpf (None) H 10/04/16 18:10 Microbiology 10/04/16 18:10 Urine,Voided Urine Culture - Final Assessment and Plan (1) Cutaneous abscess of face Narrative/Plan: 60-year-old woman presents to Hospital with increasing weakness and falls at home. 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 Her dementia is also worsening. He may be having some increasing difficulties with her nutrition. Nutritional supplements are requested as a pre-albumin given it appears that she does have evidence of modest protein calorie malnutrition at this time. There is evidence of a an area of erythema and induration to the right lower lip area. It is exquisitely tender. There is concern this could be related to the oral cavity. This was given her somewhat poor oral hygiene. Consequently antibiotic therapy as requested. ertapenem 1 g IV piggyback daily will be given. If no IV available this can be given intramuscularly. The site appears to more of a phlegmon at this time. If it becomes an abscess may require surgical incision and drainage to this area. The urinalysis is mildly abnormal but urine culture does not appear to be positive at this time. Status: Acute (2) Rosenda chorea Status: Acute (3) Unsteady gait Status: Acute
[2016-10-12] MEDS: HYDROmorphone 1 MG/ML 1 ML SYRINGE IVP PRN ×2 (01:40→12:31)
[2016-10-12] MEDS: VENLAFAXINE HCL ER 150 MG CAP PO SCH (08:17)
[2016-10-12] MEDS: ALPRAZolam 0.5 MG TAB PO SCH ×4 (08:20→22:06)
[2016-10-12] MEDS: HEPARIN SODIUM,PORCINE 5,000 UNIT/ML 1 ML VIAL SQ SCH ×3 (08:20→23:42)
[2016-10-12] MEDS: ERTAPENEM 1 GM in SODIUM CHLORIDE 0.9% 50 ML IVPB SCH (08:20)
[2016-10-12] MEDS: NICOTINE 14MG/24HR PATCH TRANSDERM SCH ×2 (08:20→08:25)
[2016-10-12 08:57] LABS: ALT 35 U/L (9-52); AST 21 U/L (14-36); Alkaline Phosphatase 119 U/L (38-126); Anion Gap 6 mmol/L; Blood Urea Nitrogen 14 mg/dL (7-17); Calcium 8.7 mg/dL (8.4-10.2); Carbon Dioxide 31 mmol/L (22-30); Chloride 102 mmol/L (98-107); Glucose 79 mg/dL (74-99); Non-African American GFR(MDRD) >60 (>60 ml/min/1.73 sqM); Potassium 4.9 mmol/L (3.5-5.1); Sodium 139 mmol/L (137-145); Total Bilirubin 0.6 mg/dL (0.2-1.3); Total Protein 5.9 g/dL (6.3-8.2)
[2016-10-12 08:59] LABS: Basophils # (A) 0.1 k/uL (0-0.2); Basophils % (A) 1 %; CH 29.6; CHCM 30.7; Eosinophils # (A) 0.3 k/uL (0-0.7); Eosinophils % (A) 4 %; HCT 39.2 % (34.0-46.0); HDW 2.45; HGB 12.2 gm/dL (11.4-16.0); Hypochromasia Moderate; Luc # (Auto) 0.17; Luc % (Auto) 2; Lymphocytes # (A) 1.9 k/uL (1.0-4.8); Lymphocytes % (A) 21 %; MCH 30.1 pg (25.0-35.0); MCHC 31.2 g/dL (31.0-37.0); MCV 96.6 fL (80.0-100.0); Monocytes # (A) 0.7 k/uL (0-1.0); Monocytes % (A) 7 %; Neutrophils # (A) 5.9 k/uL (1.3-7.7); Neutrophils % (A) 66 %; RBC 4.05 m/uL (3.80-5.40); RDW 13.9 % (11.5-15.5); WBC (Perox) 9.31
[2016-10-12] MEDS ORDERED: IV FLUID CONTINUATION 1,000 ML IV ONE (16:40)
[2016-10-12] MEDS ORDERED: fentaNYL (PF) 50 MCG/ML 2 ML AMP ONE (17:32)
[2016-10-12] MEDS ORDERED: KETAMINE 10 MG/ML 20 ML VIAL ONE (17:32)
[2016-10-12] MEDS ORDERED: MIDAZOLAM 2 MG/2 ML VIAL ONE (17:32)
[2016-10-12] MEDS ORDERED: LIDOCAINE 1% INJ 10MG/ML (20 ML MDV) ONE (17:32)
[2016-10-12] MEDS ORDERED: PROPOFOL 10 MG/ML 20 ML VIAL IV ONE (17:32)
[2016-10-12] MEDS ORDERED: LIDOCAINE 1%-EPI 1:100,000 20 ML VIAL SQ ONE (17:45)
--- NOTE | 2016-10-12 18:00 | P.OP ---
Date of Procedure: 10/12/16 Preoperative Diagnosis: Right lower lip abscess Postoperative Diagnosis: Same Procedure(s) Performed: Incision and drainage of a right lower lip abscess complex with cultures performed Implants: Anesthesia: MAC Surgeon: Jesu Ribera Estimated Blood Loss (ml): 2 Pathology: none sent Condition: stable Disposition: PACU Indications for Procedure: Patient has a right lower lip abscess that is not resolving with medical therapy. Incision and drainage is recommended. The patient has Richmond's chorea and is unable to cooperate at the bedside Operative Findings: Right lower lip abscess subfascial Description of Procedure: This patient was taken to the operating room and IV sedation was administered. The patient has a right lower lip abscess. The right lower lip was anesthetized with lidocaine 1% with epinephrine 1 100,000. An incision was made inside the lip so the incision would be mucosal. This went through the orbicularis jayson muscle and an abscess was identified and a hemostat was placed and widened and drained. We did obtain material for culture and sensitivity along with a Gram stain. The patient tolerated this well. A compression dressing was placed which we will be removing in the next few hours. The patient is to rest with head elevated.
--- NOTE | 2016-10-12 19:26 | P.PN ---
Subjective Principal diagnosis: Physical exam 60-year-old female looking older than stated age resting in bed opens eyes to verbal stimuli HEENT redness and swelling along the right lower lip improving Lungs essentially clear adequate air movement heart S1-S2 audible and regular Abdomen soft nontender not distended bowel tones present Extremities no edema noted 60-year-old female history of Gordon's chorea presenting for recurrent falls. Daughter states she lives at home currently with the patient's but is unable to care for herself anymore. She has a history of dementia associated with Rosenda's. She's been declining recently. She has had difficulty swallowing recently and decreased oral intake due to progression of the disease. Objective - Vital Signs Vital signs: Vital Signs Temp 98.1 F 10/12/16 18:00 Pulse 64 10/12/16 18:30 Resp 16 10/12/16 18:30 BP 102/53 10/12/16 18:30 Pulse Ox 95 10/12/16 18:30 Intake & Output 10/12/16 10/12/16 10/13/16 06:59 18:59 06:59 Intake Total 450 Output Total 0 Balance 450 Intake: IV 450 Output: Estimated Blood Loss 0 Other: Voiding Method Bedside Commode Diaper # Voids 1 3 # Bowel Movements 0 - Labs CBC & Chem 7: 10/12/16 08:04 10/12/16 08:04 Labs: Abnormal Lab Results - Last 24 Hours (Table) 10/12/16 Range/Units 08:04 Carbon Dioxide 31 H (22-30) mmol/L Creatinine 0.51 L (0.52-1.04) mg/dL Total Protein 5.9 L (6.3-8.2) g/dL Albumin 3.2 L (3.5-5.0) g/dL Assessment and Plan Plan: #1 Rosenda Chorea #2 multiple falls at home #3 early dementia #4 difficulty with swallowing #5 physical debility #6 abnormal computed tomography scan of the brain was probable posterior fossa meningioma #7 abscess in the lower lip, patient underwent incision and drainage with cultures by Dr. Kay, she is maintained on IV antibiotic Will continue Continue physical therapy and occupational therapy Obtain swallow evaluation Patient may need to be transferred to a correction for care
[2016-10-12] MEDS: ACETAMINOPHEN TAB 325 MG TAB PO PRN (22:09)
--- NOTE | 2016-10-12 23:07 | P.PN ---
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 She's had some consistent decline of her status but apparently more recently has been having increasing amounts of choreiform movements resulting in falls. She's also developed some worsening dementia. She was brought to hospital with concerns to falls, swelling to the right lower lip area which is painful. Decreasing intake. Increasing weakness. She has been seen by neurology and review the computed tomography scan does show evidence of the caudate nucleus atrophy. Still has pain of the lower lip. Will have I&D today. Objective - Vital Signs Vital signs: Vital Signs Temp 98.1 F 10/12/16 18:00 Pulse 64 10/12/16 18:30 Resp 16 10/12/16 18:30 BP 102/53 10/12/16 18:30 Pulse Ox 95 10/12/16 18:30 Intake & Output 10/12/16 10/12/16 10/13/16 06:59 18:59 06:59 Intake Total 450 800 Output Total 0 Balance 450 800 Intake: IV 450 Oral 800 Output: Estimated Blood Loss 0 Other: Voiding Method Bedside Commode Diaper # Voids 1 3 1 # Bowel Movements 0 1 - Exam 60-year-old woman who appears to be older than her stated age appears to be uncomfortable. HEENT: Anicteric conjunctiva are pink and moist nasal mucosa grossly intact without significant lesions, there is no thrush. Dentition is very poor. There is evidence of a significant area of localized swelling on the right lower lip. It is distinctly tender. It is not fluctuant. There HE does not have thrush or lesions. There is no significant swelling to the right neck. There is no lymphadenopathy to the right neck and her other areas. Neck: The neck is supple without significant lymphadenopathy or thyromegaly. Lungs: There is symmetrical air entry. Expiratory wheezes are scattered. No karel bronchial sounds. No dullness is noted Heart: Regular rate and rhythm with an audible S1-S2, no S3 no S4. There is no significant murmur click or rub, PMI was nondisplaced. Abdomen: Positive bowel sounds soft and nontender without palpable masses or organomegaly. There was no guarding or rebound. Extremities: The upper extremities have excellent pulses they are symmetric, no significant petechiae or telangiectasia. No splinter hemorrhages were noted. The lower extremities are free from significant edema. The peripheral pulses were 2+ and symmetric. Neuro: She is awake attempts to respond. Occasionally seems to generate an answer that seems appropriate for the question. She is hungry and would like her lunch. She appears in no difficulty of choking on her secretions. Does have the difficulty with coronary form motions of her face neck and extremities. - Labs CBC & Chem 7: 10/12/16 08:04 10/12/16 08:04 Labs: Abnormal Lab Results - Last 24 Hours (Table) 10/12/16 Range/Units 08:04 Carbon Dioxide 31 H (22-30) mmol/L Creatinine 0.51 L (0.52-1.04) mg/dL Total Protein 5.9 L (6.3-8.2) g/dL Albumin 3.2 L (3.5-5.0) g/dL Laboratory Results WBC 9.0 k/uL (3.8-10.6) 10/12/16 08:04 RBC 4.05 m/uL (3.80-5.40) 10/12/16 08:04 Hgb 12.2 gm/dL (11.4-16.0) 10/12/16 08:04 Hct 39.2 % (34.0-46.0) 10/12/16 08:04 MCV 96.6 fL (80.0-100.0) 10/12/16 08:04 MCH 30.1 pg (25.0-35.0) 10/12/16 08:04 MCHC 31.2 g/dL (31.0-37.0) 10/12/16 08:04 RDW 13.9 % (11.5-15.5) 10/12/16 08:04 Plt Count 309 k/uL (150-450) 10/12/16 08:04 Neutrophils % 66 % 10/12/16 08:04 Neutrophils % (Manual) 54.0 % 10/06/16 09:28 Lymphocytes % 21 % 10/12/16 08:04 Lymphocytes % (Manual) 36.0 % 10/06/16 09:28 Monocytes % 7 % 10/12/16 08:04 Monocytes % (Manual) 6.0 % 10/06/16 09:28 Eosinophils % 4 % 10/12/16 08:04 Eosinophils % (Manual) 4.0 % 10/06/16 09:28 Basophils % 1 % 10/12/16 08:04 Neutrophils # 5.9 k/uL (1.3-7.7) 10/12/16 08:04 Neutrophils # (Manual) 2.6 k/uL (1.3-7.7) 10/06/16 09:28 Lymphocytes # 1.9 k/uL (1.0-4.8) 10/12/16 08:04 Lymphocytes # (Manual) 1.7 k/uL (1.0-4.8) 10/06/16 09:28 Monocytes # 0.7 k/uL (0-1.0) 10/12/16 08:04 Monocytes # (Manual) 0.3 k/uL (0-1.0) 10/06/16 09:28 Eosinophils # 0.3 k/uL (0-0.7) 10/12/16 08:04 Eosinophils # (Manual) 0.2 k/uL (0-0.7) 10/06/16 09:28 Basophils # 0.1 k/uL (0-0.2) 10/12/16 08:04 Nucleated RBCs 0 /100 WBC (0-0) 10/06/16 09:28 Hypochromasia Moderate 10/12/16 08:04 Poikilocytosis (manual Present 10/06/16 09:28 Anisocytosis (manual) Present 10/06/16 09:28 Sodium 139 mmol/L (137-145) 10/12/16 08:04 Potassium 4.9 mmol/L (3.5-5.1) 10/12/16 08:04 Chloride 102 mmol/L (98-107) 10/12/16 08:04 Carbon Dioxide 31 mmol/L (22-30) H 10/12/16 08:04 Anion Gap 6 mmol/L 10/12/16 08:04 BUN 14 mg/dL (7-17) 10/12/16 08:04 Creatinine 0.51 mg/dL (0.52-1.04) L 10/12/16 08:04 Est GFR (MDRD) Af Amer >60 (>60 ml/min/1.73 sqM) 10/12/16 08:04 Est GFR (MDRD) Non-Af >60 (>60 ml/min/1.73 sqM) 10/12/16 08:04 Glucose 79 mg/dL (74-99) 10/12/16 08:04 Calcium 8.7 mg/dL (8.4-10.2) 10/12/16 08:04 Phosphorus 3.5 mg/dL (2.5-4.5) 10/05/16 09:24 Magnesium 2.1 mg/dL (1.6-2.3) 10/05/16 09:24 Total Bilirubin 0.6 mg/dL (0.2-1.3) 10/12/16 08:04 AST 21 U/L (14-36) 10/12/16 08:04 ALT 35 U/L (9-52) 10/12/16 08:04 Alkaline Phosphatase 119 U/L (38-126) 10/12/16 08:04 Troponin I <0.012 ng/mL (0.000-0.034) 10/04/16 14:20 Total Protein 5.9 g/dL (6.3-8.2) L 10/12/16 08:04 Albumin 3.2 g/dL (3.5-5.0) L 10/12/16 08:04 Prealbumin 14 mg/dL (18-36) L 10/10/16 13:06 Urine Color Light Yellow 10/04/16 18:10 Urine Appearance Clear (Clear) 10/04/16 18:10 Urine pH 5.5 (5.0-8.0) 10/04/16 18:10 Ur Specific [place] 1.008 (1.001-1.035) 10/04/16 18:10 Urine Protein Negative (Negative) 10/04/16 18:10 Urine Glucose (UA) Negative (Negative) 10/04/16 18:10 Urine Ketones Negative (Negative) 10/04/16 18:10 Urine Blood Small (Negative) H 10/04/16 18:10 Urine Nitrite Negative (Negative) 10/04/16 18:10 Urine Bilirubin Negative (Negative) 10/04/16 18:10 Urine Urobilinogen <2.0 mg/dL (<2.0) 10/04/16 18:10 Ur Leukocyte Esterase Negative (Negative) 10/04/16 18:10 Urine RBC 1 /hpf (0-5) 10/04/16 18:10 Ur Squamous Epith Cells 2 /hpf (0-4) 10/04/16 18:10 Urine Bacteria Rare /hpf (None) H 10/04/16 18:10 Urine Mucus Rare /hpf (None) H 10/04/16 18:10 Urine Yeast (Budding) Rare /hpf (None) H 10/04/16 18:10 Microbiology 10/04/16 18:10 Urine,Voided Urine Culture - Final Assessment and Plan (1) Cutaneous abscess of face Narrative/Plan: 60-year-old woman presents to Hospital with increasing weakness and falls at home. 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 Her dementia is also worsening. He may be having some increasing difficulties with her nutrition. Nutritional supplements are requested as a pre-albumin given it appears that she does have evidence of modest protein calorie malnutrition at this time. There is evidence of a an area of erythema and induration to the right lower lip area. It is exquisitely tender. There is concern this could be related to the oral cavity. This was given her somewhat poor oral hygiene. Consequently antibiotic therapy as requested. ertapenem 1 g IV piggyback daily will be given. If no IV available this can be given intramuscularly. The site appears to be more tender and surgical incision and drainage to this areatoday. The urinalysis is mildly abnormal but urine culture does not appear to be positive at this time. Continue current antibiotics while cultures pending Status: Acute (2) Plumas chorea Status: Acute (3) Unsteady gait Status: Acute
[2016-10-13] MEDS: ACETAMINOPHEN TAB 325 MG TAB PO PRN (04:45)
[2016-10-13] MEDS: ALPRAZolam 0.5 MG TAB PO SCH ×4 (04:45→21:57)
[2016-10-13] MEDS: NICOTINE 14MG/24HR PATCH TRANSDERM SCH (09:11)
[2016-10-13] MEDS: ERTAPENEM 1 GM in SODIUM CHLORIDE 0.9% 50 ML IVPB SCH (09:15)
[2016-10-13] MEDS: HEPARIN SODIUM,PORCINE 5,000 UNIT/ML 1 ML VIAL SQ SCH ×3 (09:15→22:49)
[2016-10-13] MEDS: VENLAFAXINE HCL ER 150 MG CAP PO SCH (09:15)
[2016-10-13] MEDS: HYDROmorphone 1 MG/ML 1 ML SYRINGE IVP PRN ×2 (11:43→16:16)
[2016-10-13] MEDS: SODIUM CHLORIDE 0.9% 1,000 ML IV SCH (15:51)
--- NOTE | 2016-10-13 22:20 | P.PN ---
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 She's had some consistent decline of her status but apparently more recently has been having increasing amounts of choreiform movements resulting in falls. She's also developed some worsening dementia. She was brought to hospital with concerns to falls, swelling to the right lower lip area which is painful. Decreasing intake. Increasing weakness. She has been seen by neurology and review the computed tomography scan does show evidence of the caudate nucleus atrophy. Appears to be feeling better after the incision and drainage Objective - Vital Signs Vital signs: Vital Signs Temp 98.6 F 10/13/16 15:00 Pulse 74 10/13/16 15:42 Resp 20 10/13/16 15:42 BP 164/66 10/13/16 15:00 Pulse Ox 91 L 10/13/16 15:00 Intake & Output 10/13/16 10/13/16 10/14/16 06:59 18:59 06:59 Intake Total 800 620 Balance 800 620 Intake: Oral 800 620 Other: Voiding Method Incontinent Incontinent # Voids 1 1 # Bowel Movements 1 0 - Exam 60-year-old woman who appears to be older than her stated age appears to be uncomfortable. HEENT: Anicteric conjunctiva are pink and moist nasal mucosa grossly intact without significant lesions, there is no thrush. Dentition is very poor. There is evidence of the incision and drainage of the abscess. Decreased tenderness, decreased swelling. Oral cavity does not have thrush or lesions. There is no significant swelling to the right neck. There is no lymphadenopathy to the right neck and her other areas. Neck: The neck is supple without significant lymphadenopathy or thyromegaly. Lungs: There is symmetrical air entry. Expiratory wheezes are scattered. No karel bronchial sounds. No dullness is noted Heart: Regular rate and rhythm with an audible S1-S2, no S3 no S4. There is no significant murmur click or rub, PMI was nondisplaced. Abdomen: Positive bowel sounds soft and nontender without palpable masses or organomegaly. There was no guarding or rebound. Extremities: The upper extremities have excellent pulses they are symmetric, no significant petechiae or telangiectasia. No splinter hemorrhages were noted. The lower extremities are free from significant edema. The peripheral pulses were 2+ and symmetric. Neuro: She is awake attempts to respond. Occasionally seems to generate an answer that seems appropriate for the question. She is hungry and would like her lunch. She appears in no difficulty of choking on her secretions. Does have the difficulty with coreiform motions of her face neck and extremities. - Labs CBC & Chem 7: 10/12/16 08:04 10/12/16 08:04 Labs: Microbiology - Last 24 Hours (Table) 10/12/16 17:44 Gram Stain - Preliminary Lip Wound Culture - Preliminary 10/12/16 17:44 Anaerobic Culture - Preliminary Lip Laboratory Results WBC 9.0 k/uL (3.8-10.6) 10/12/16 08:04 RBC 4.05 m/uL (3.80-5.40) 10/12/16 08:04 Hgb 12.2 gm/dL (11.4-16.0) 10/12/16 08:04 Hct 39.2 % (34.0-46.0) 10/12/16 08:04 MCV 96.6 fL (80.0-100.0) 10/12/16 08:04 MCH 30.1 pg (25.0-35.0) 10/12/16 08:04 MCHC 31.2 g/dL (31.0-37.0) 10/12/16 08:04 RDW 13.9 % (11.5-15.5) 10/12/16 08:04 Plt Count 309 k/uL (150-450) 10/12/16 08:04 Neutrophils % 66 % 10/12/16 08:04 Neutrophils % (Manual) 54.0 % 10/06/16 09:28 Lymphocytes % 21 % 10/12/16 08:04 Lymphocytes % (Manual) 36.0 % 10/06/16 09:28 Monocytes % 7 % 10/12/16 08:04 Monocytes % (Manual) 6.0 % 10/06/16 09:28 Eosinophils % 4 % 10/12/16 08:04 Eosinophils % (Manual) 4.0 % 10/06/16 09:28 Basophils % 1 % 10/12/16 08:04 Neutrophils # 5.9 k/uL (1.3-7.7) 10/12/16 08:04 Neutrophils # (Manual) 2.6 k/uL (1.3-7.7) 10/06/16 09:28 Lymphocytes # 1.9 k/uL (1.0-4.8) 10/12/16 08:04 Lymphocytes # (Manual) 1.7 k/uL (1.0-4.8) 10/06/16 09:28 Monocytes # 0.7 k/uL (0-1.0) 10/12/16 08:04 Monocytes # (Manual) 0.3 k/uL (0-1.0) 10/06/16 09:28 Eosinophils # 0.3 k/uL (0-0.7) 10/12/16 08:04 Eosinophils # (Manual) 0.2 k/uL (0-0.7) 10/06/16 09:28 Basophils # 0.1 k/uL (0-0.2) 10/12/16 08:04 Nucleated RBCs 0 /100 WBC (0-0) 10/06/16 09:28 Hypochromasia Moderate 10/12/16 08:04 Poikilocytosis (manual Present 10/06/16 09:28 Anisocytosis (manual) Present 10/06/16 09:28 Sodium 139 mmol/L (137-145) 10/12/16 08:04 Potassium 4.9 mmol/L (3.5-5.1) 10/12/16 08:04 Chloride 102 mmol/L (98-107) 10/12/16 08:04 Carbon Dioxide 31 mmol/L (22-30) H 10/12/16 08:04 Anion Gap 6 mmol/L 10/12/16 08:04 BUN 14 mg/dL (7-17) 10/12/16 08:04 Creatinine 0.51 mg/dL (0.52-1.04) L 10/12/16 08:04 Est GFR (MDRD) Af Amer >60 (>60 ml/min/1.73 sqM) 10/12/16 08:04 Est GFR (MDRD) Non-Af >60 (>60 ml/min/1.73 sqM) 10/12/16 08:04 Glucose 79 mg/dL (74-99) 10/12/16 08:04 Calcium 8.7 mg/dL (8.4-10.2) 10/12/16 08:04 Phosphorus 3.5 mg/dL (2.5-4.5) 10/05/16 09:24 Magnesium 2.1 mg/dL (1.6-2.3) 10/05/16 09:24 Total Bilirubin 0.6 mg/dL (0.2-1.3) 10/12/16 08:04 AST 21 U/L (14-36) 10/12/16 08:04 ALT 35 U/L (9-52) 10/12/16 08:04 Alkaline Phosphatase 119 U/L (38-126) 10/12/16 08:04 Troponin I <0.012 ng/mL (0.000-0.034) 10/04/16 14:20 Total Protein 5.9 g/dL (6.3-8.2) L 10/12/16 08:04 Albumin 3.2 g/dL (3.5-5.0) L 10/12/16 08:04 Prealbumin 14 mg/dL (18-36) L 10/10/16 13:06 Urine Color Light Yellow 10/04/16 18:10 Urine Appearance Clear (Clear) 10/04/16 18:10 Urine pH 5.5 (5.0-8.0) 10/04/16 18:10 Ur Specific Jet 1.008 (1.001-1.035) 10/04/16 18:10 Urine Protein Negative (Negative) 10/04/16 18:10 Urine Glucose (UA) Negative (Negative) 10/04/16 18:10 Urine Ketones Negative (Negative) 10/04/16 18:10 Urine Blood Small (Negative) H 10/04/16 18:10 Urine Nitrite Negative (Negative) 10/04/16 18:10 Urine Bilirubin Negative (Negative) 10/04/16 18:10 Urine Urobilinogen <2.0 mg/dL (<2.0) 10/04/16 18:10 Ur Leukocyte Esterase Negative (Negative) 10/04/16 18:10 Urine RBC 1 /hpf (0-5) 10/04/16 18:10 Ur Squamous Epith Cells 2 /hpf (0-4) 10/04/16 18:10 Urine Bacteria Rare /hpf (None) H 10/04/16 18:10 Urine Mucus Rare /hpf (None) H 10/04/16 18:10 Urine Yeast (Budding) Rare /hpf (None) H 10/04/16 18:10 Microbiology 10/12/16 17:44 Lip Gram Stain - Preliminary 10/12/16 17:44 Lip Wound Culture - Preliminary 10/12/16 17:44 Lip Anaerobic Culture - Preliminary 10/04/16 18:10 Urine,Voided Urine Culture - Final Assessment and Plan (1) Cutaneous abscess of face Narrative/Plan: 60-year-old woman presents to Hospital with increasing weakness and falls at home. She has a history of Sussex's chorea and appears to have progressive liver disease. Her dementia is also worsening. He may be having some increasing difficulties with her nutrition. Nutritional supplements are requested as a pre-albumin given it appears that she does have evidence of modest protein calorie malnutrition at this time. There is evidence of a an area of erythema and induration to the right lower lip area. It is exquisitely tender. There is concern this could be related to the oral cavity. This was given her somewhat poor oral hygiene. Consequently antibiotic therapy as requested. ertapenem 1 g IV piggyback daily . With the incision and drainage appears to be improved. Of note some yeast is been isolated and Diflucan was added. The urinalysis is mildly abnormal but urine culture does not appear to be positive at this time. Continue current antibiotics while cultures pending, unclear about discharge plan at this time. Status: Acute (2) Sussex chorea Status: Acute (3) Unsteady gait Status: Acute
[2016-10-13] MEDS: FLUCONAZOLE 100 MG TAB PO SCH (22:47)
[2016-10-13 23:25] VITALS: RESP 18
[2016-10-14] MEDS: HYDROmorphone 1 MG/ML 1 ML SYRINGE IVP PRN ×2 (00:57→06:08)
[2016-10-14] MEDS: NICOTINE 14MG/24HR PATCH TRANSDERM SCH (08:01)
[2016-10-14] MEDS: ALPRAZolam 0.5 MG TAB PO SCH ×2 (08:01→12:02)
[2016-10-14] MEDS: ERTAPENEM 1 GM in SODIUM CHLORIDE 0.9% 50 ML IVPB SCH (08:02)
[2016-10-14] MEDS: HEPARIN SODIUM,PORCINE 5,000 UNIT/ML 1 ML VIAL SQ SCH ×2 (08:02→16:08)
[2016-10-14] MEDS: FLUCONAZOLE 100 MG TAB PO SCH (08:02)
[2016-10-14] MEDS: VENLAFAXINE HCL ER 150 MG CAP PO SCH (08:02)
--- NOTE | 2016-10-14 14:08 | P.DS ---
Providers Date of admission: 10/04/16 16:16 Expected date of discharge: 10/14/16 Attending physician: Molly Shah Consults: 10/04/16 18:37 Consult Physician Routine Consulting Provider: Skyler Tejeda Consult Reason/Comments: huntingtons disease Do you want consulting provider notified?: Yes 10/10/16 09:18 Consult Physician Urgent Consulting Provider: Jose Mendez Consult Reason/Comments: Recommendations antibiotic Do you want consulting provider notified?: Yes 10/11/16 14:03 Consult Physician Routine Consulting Provider: Jesu Ribera Consult Reason/Comments: lip abscess Do you want consulting provider notified?: Yes Primary care physician: Eli Lowe Hospital Course: Discharge diagnosis #1 Rosenda Chorea #2 multiple falls at home #3 early dementia #4 difficulty with swallowing diet adjusted per speech therapist #5 physical debility #6 abnormal computed tomography scan of the brain was probable posterior fossa meningioma evaluated by neurology #7 abscess in the lower lip, patient underwent incision and drainage with cultures by Dr. 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 Daughter states she lives at home currently with the patient's but is unable to care for herself anymore. She has a history of dementia associated with Whe[place]'s. She's been declining recently. She has had difficulty swallowing recently and decreased oral intake due to progression of the disease. Daughter states she fell 4 times today multiple times over the past few weeks. Daughter denies any known loss of consciousness with falls. She is not currently on blood thinners. Computed tomography scan of the brain showed no acute intracranial hemorrhage or midline shift. There is mild to moderate diffuse age-related cerebral atrophy and mild chronic vessel ischemic change. Probable posterior fossa meningioma redemonstrated. Patient was seen evaluated by neurology. They reported significant cordiform movements and heard dementia symptoms are consistent with her diagnosis of Wheeling's rafia. And patient appears to be at the end stage of her disease which is causing her recurrent falls. They did recommend longterm placement. They do not have any further workup or medications recommended. Patient had no sniffing inhalants abnormalities in her lab work. She was evaluated by speech therapy and they're recommending an alternate diet is pured dysphagia. Patient has been up and ambulating. We're currently waiting on insurance prior authorization. Otherwise she is medically stable and his been cleared by neurology. X-ray of the ribs were completed and it does reveal a healed fracture no acute fractures. Patient was initially discharged on 10/07/2016. However, her insurance would not cover patient going to a longterm. Therefore patient remained in the hospital and there was a right lip bruise that turned into an abscess I she was evaluated by infectious disease and ENT services. She did require an I&D of that area. And she was placed on IV antibiotics. Dr. Pendleton is recommending Avelox for 5 days and Diflucan for 4 days at discharge. Patient's symptoms have improved she is stable for discharge she'll be discharged home with home care. I performed an examination of the patient and discussed their management with the physician Analytics Intern. I have reviewed the Physician Analytics Intern's notes and agree with the documented findings and plan of care Patient Condition at Discharge: Stable Plan - Discharge Summary New Discharge Prescriptions: ALPRAZolam [Xanax] 1 mg PO TID #90 Fluconazole [Diflucan] 200 mg PO DAILY #4 tab Moxifloxacin HCl 400 mg PO DAILY #5 tab Discharge Medication List Venlafaxine HCl ER [Effexor XR] 150 mg PO DAILY 12/03/15 [History] ALPRAZolam [Xanax] 1 mg PO TID #90 10/07/16 [Rx] Moxifloxacin HCl 400 mg PO DAILY #5 tab 10/11/16 [Rx] Fluconazole [Diflucan] 200 mg PO DAILY #4 tab 10/14/16 [Rx] Follow up Appointment(s)/Referral(s): Eli Lowe DO [Primary Care Provider] - 1 Week Patient Instructions/Handouts: Fall Prevention (DC) Activity/Diet/Wound Care/Special Instructions: Diet: pured dysphagia 1 diet with aspiration precautions Activity as tolerated, fall precautions Patient will be discharged to [facility]. Dr. Lopez to follow at [facility] NO smoking, cessation information provided. Discharge Disposition: HOME WITH HOME HEALTH SERVICES
[2016-10-14 15:34] VITALS: BP 106/72; PULSE 78; TEMP 98.7
[2016-10-14] MEDS: SODIUM CHLORIDE 0.9% 1,000 ML IV SCH (16:08)
--- NOTE | 2016-10-14 20:46 | P.PN ---
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 She's had some consistent decline of her status but apparently more recently has been having increasing amounts of choreiform movements resulting in falls. She's also developed some worsening dementia. She was brought to hospital with concerns to falls, swelling to the right lower lip area which is painful. Decreasing intake. Increasing weakness. She has been seen by neurology and review the computed tomography scan does show evidence of the caudate nucleus atrophy. Appears to be feeling better after the incision and drainage Objective - Vital Signs Vital signs: Vital Signs Temp 98.7 F 10/14/16 15:00 Pulse 78 10/14/16 15:00 Resp 18 10/14/16 15:20 BP 106/72 10/14/16 15:00 Pulse Ox 91 L 10/14/16 15:00 Intake & Output 10/14/16 10/14/16 10/15/16 06:59 18:59 06:59 Output Total 1000 Balance -1000 Weight 68 kg Output: Urine 1000 Other: Voiding Method Bedside Commode Bedside Commode Incontinent Incontinent # Voids 2 # Bowel Movements 0 - Exam 60-year-old woman who appears to be older than her stated age appears to be uncomfortable. HEENT: Anicteric conjunctiva are pink and moist nasal mucosa grossly intact without significant lesions, there is no thrush. Dentition is very poor. There is evidence of the incision and drainage of the abscess. Decreased tenderness, decreased swelling. Oral cavity does not have thrush or lesions. There is no significant swelling to the right neck. There is no lymphadenopathy to the right neck and her other areas. Neck: The neck is supple without significant lymphadenopathy or thyromegaly. Lungs: There is symmetrical air entry. Expiratory wheezes are scattered. No karel bronchial sounds. No dullness is noted Heart: Regular rate and rhythm with an audible S1-S2, no S3 no S4. There is no significant murmur click or rub, PMI was nondisplaced. Abdomen: Positive bowel sounds soft and nontender without palpable masses or organomegaly. There was no guarding or rebound. Extremities: The upper extremities have excellent pulses they are symmetric, no significant petechiae or telangiectasia. No splinter hemorrhages were noted. The lower extremities are free from significant edema. The peripheral pulses were 2+ and symmetric. Neuro: She is awake attempts to respond. Occasionally seems to generate an answer that seems appropriate for the question. She is hungry and would like her lunch. She appears in no difficulty of choking on her secretions. Does have the difficulty with coreiform motions of her face neck and extremities. - Labs CBC & Chem 7: 10/12/16 08:04 10/12/16 08:04 Labs: Microbiology - Last 24 Hours (Table) 10/12/16 17:44 Gram Stain - Preliminary Lip Wound Culture - Preliminary Yeast species Laboratory Results WBC 9.0 k/uL (3.8-10.6) 10/12/16 08:04 RBC 4.05 m/uL (3.80-5.40) 10/12/16 08:04 Hgb 12.2 gm/dL (11.4-16.0) 10/12/16 08:04 Hct 39.2 % (34.0-46.0) 10/12/16 08:04 MCV 96.6 fL (80.0-100.0) 10/12/16 08:04 MCH 30.1 pg (25.0-35.0) 10/12/16 08:04 MCHC 31.2 g/dL (31.0-37.0) 10/12/16 08:04 RDW 13.9 % (11.5-15.5) 10/12/16 08:04 Plt Count 309 k/uL (150-450) 10/12/16 08:04 Neutrophils % 66 % 10/12/16 08:04 Neutrophils % (Manual) 54.0 % 10/06/16 09:28 Lymphocytes % 21 % 10/12/16 08:04 Lymphocytes % (Manual) 36.0 % 10/06/16 09:28 Monocytes % 7 % 10/12/16 08:04 Monocytes % (Manual) 6.0 % 10/06/16 09:28 Eosinophils % 4 % 10/12/16 08:04 Eosinophils % (Manual) 4.0 % 10/06/16 09:28 Basophils % 1 % 10/12/16 08:04 Neutrophils # 5.9 k/uL (1.3-7.7) 10/12/16 08:04 Neutrophils # (Manual) 2.6 k/uL (1.3-7.7) 10/06/16 09:28 Lymphocytes # 1.9 k/uL (1.0-4.8) 10/12/16 08:04 Lymphocytes # (Manual) 1.7 k/uL (1.0-4.8) 10/06/16 09:28 Monocytes # 0.7 k/uL (0-1.0) 10/12/16 08:04 Monocytes # (Manual) 0.3 k/uL (0-1.0) 10/06/16 09:28 Eosinophils # 0.3 k/uL (0-0.7) 10/12/16 08:04 Eosinophils # (Manual) 0.2 k/uL (0-0.7) 10/06/16 09:28 Basophils # 0.1 k/uL (0-0.2) 10/12/16 08:04 Nucleated RBCs 0 /100 WBC (0-0) 10/06/16 09:28 Hypochromasia Moderate 10/12/16 08:04 Poikilocytosis (manual Present 10/06/16 09:28 Anisocytosis (manual) Present 10/06/16 09:28 Sodium 139 mmol/L (137-145) 10/12/16 08:04 Potassium 4.9 mmol/L (3.5-5.1) 10/12/16 08:04 Chloride 102 mmol/L (98-107) 10/12/16 08:04 Carbon Dioxide 31 mmol/L (22-30) H 10/12/16 08:04 Anion Gap 6 mmol/L 10/12/16 08:04 BUN 14 mg/dL (7-17) 10/12/16 08:04 Creatinine 0.51 mg/dL (0.52-1.04) L 10/12/16 08:04 Est GFR (MDRD) Af Amer >60 (>60 ml/min/1.73 sqM) 10/12/16 08:04 Est GFR (MDRD) Non-Af >60 (>60 ml/min/1.73 sqM) 10/12/16 08:04 Glucose 79 mg/dL (74-99) 10/12/16 08:04 Calcium 8.7 mg/dL (8.4-10.2) 10/12/16 08:04 Phosphorus 3.5 mg/dL (2.5-4.5) 10/05/16 09:24 Magnesium 2.1 mg/dL (1.6-2.3) 10/05/16 09:24 Total Bilirubin 0.6 mg/dL (0.2-1.3) 10/12/16 08:04 AST 21 U/L (14-36) 10/12/16 08:04 ALT 35 U/L (9-52) 10/12/16 08:04 Alkaline Phosphatase 119 U/L (38-126) 10/12/16 08:04 Troponin I <0.012 ng/mL (0.000-0.034) 10/04/16 14:20 Total Protein 5.9 g/dL (6.3-8.2) L 10/12/16 08:04 Albumin 3.2 g/dL (3.5-5.0) L 10/12/16 08:04 Prealbumin 14 mg/dL (18-36) L 10/10/16 13:06 Urine Color Light Yellow 10/04/16 18:10 Urine Appearance Clear (Clear) 10/04/16 18:10 Urine pH 5.5 (5.0-8.0) 10/04/16 18:10 Ur Specific Kim 1.008 (1.001-1.035) 10/04/16 18:10 Urine Protein Negative (Negative) 10/04/16 18:10 Urine Glucose (UA) Negative (Negative) 10/04/16 18:10 Urine Ketones Negative (Negative) 10/04/16 18:10 Urine Blood Small (Negative) H 10/04/16 18:10 Urine Nitrite Negative (Negative) 10/04/16 18:10 Urine Bilirubin Negative (Negative) 10/04/16 18:10 Urine Urobilinogen <2.0 mg/dL (<2.0) 10/04/16 18:10 Ur Leukocyte Esterase Negative (Negative) 10/04/16 18:10 Urine RBC 1 /hpf (0-5) 10/04/16 18:10 Ur Squamous Epith Cells 2 /hpf (0-4) 10/04/16 18:10 Urine Bacteria Rare /hpf (None) H 10/04/16 18:10 Urine Mucus Rare /hpf (None) H 10/04/16 18:10 Urine Yeast (Budding) Rare /hpf (None) H 10/04/16 18:10 Microbiology 10/12/16 17:44 Lip Gram Stain - Preliminary 10/12/16 17:44 Lip Wound Culture - Preliminary Yeast species 10/12/16 17:44 Lip Anaerobic Culture - Preliminary 10/04/16 18:10 Urine,Voided Urine Culture - Final Assessment and Plan (1) Cutaneous abscess of face Narrative/Plan: 60-year-old woman presents to Hospital with increasing weakness and falls at home. 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 Her dementia is also worsening. He may be having some increasing difficulties with her nutrition. Nutritional supplements are requested as a pre-albumin given it appears that she does have evidence of modest protein calorie malnutrition at this time. There is evidence of a an area of erythema and induration to the right lower lip area. It is exquisitely tender. There is concern this could be related to the oral cavity. This was given her somewhat poor oral hygiene. Consequently antibiotic therapy as requested. ertapenem 1 g IV piggyback daily . With the incision and drainage appears to be improved. Of note some yeast is been isolated and Diflucan was added. The urinalysis is mildly abnormal but urine culture does not appear to be positive at this time. Will plan Avelox with diflucan for discharge to home not to ECF Status: Acute (2) Tyronza chorea Status: Acute (3) Unsteady gait Status: Acute
== END 2016-10-14 17:23 | disposition home health service (06) | DRG 57 ==
LOC: EC 13:13 → 4MS4W 16:16
PROVIDERS: ADMIT Internal Medicine; ATTEND Internal Medicine
PROC: 0C9 Mouth and Throat, Drainage (ICD-10-PCS; principal; 2016-10-12 07:30)
DX: G10 Huntington's disease (principal); F02.80 Dementia in other diseases classified elsewhere, unspecified severity, without behavioral disturbance, psychotic disturbance, mood disturbance, and anxiety; E46 Unspecified protein-calorie malnutrition; K13.0 Diseases of lips; S00.531A Contusion of lip, initial encounter; L02.01 Cutaneous abscess of face; R13.10 Dysphagia, unspecified; Z66 Do not resuscitate; R32 Unspecified urinary incontinence; R00.0 Tachycardia, unspecified; R53.81 Other malaise; K76.9 Liver disease, unspecified; S00.93XA Contusion of unspecified part of head, initial encounter; I67.9 Cerebrovascular disease, unspecified; R47.1 Dysarthria and anarthria; R82.90 Unspecified abnormal findings in urine; D32.9 Benign neoplasm of meninges, unspecified; R29.6 Repeated falls; F41.9 Anxiety disorder, unspecified; F17.200 Nicotine dependence, unspecified, uncomplicated; R26.81 Unsteadiness on feet; Z91.81 History of falling; Z87.81 Personal history of (healed) traumatic fracture; Z90.49 Acquired absence of other specified parts of digestive tract; Z88.0 Allergy status to penicillin; Z91.048 Other nonmedicinal substance allergy status; Z79.899 Other long term (current) drug therapy; Z79.82 Long term (current) use of aspirin; Z71.6 Tobacco abuse counseling; Z71.3 Dietary counseling and surveillance; Z98.51 Tubal ligation status; Z90.710 Acquired absence of both cervix and uterus; Z98.84 Bariatric surgery status; Z86.69 Personal history of other diseases of the nervous system and sense organs; Z68.27 Body mass index [BMI] 27.0-27.9, adult; Z84.1 Family history of disorders of kidney and ureter; Z83.49 Family history of other endocrine, nutritional and metabolic diseases; Z82.0 Family history of epilepsy and other diseases of the nervous system; W19.XXXA Unspecified fall, initial encounter; Y92.009 Unspecified place in unspecified non-institutional (private) residence as the place of occurrence of the external cause
CPT/HCPCS: 36415; 70450; 71020; 80048; 80053; 81001; 83735; 84100; 84134; 84484; 85025; 87070; 87075; 87086; 87205; 93005; 99285

== ENCOUNTER 2016-11-30 12:57 | Inpatient (IN) | payer OTHER ==
[2016-11-30] MEDS ORDERED: SODIUM CHLORIDE 0.9% 1,000 ML IV STA ×2 (13:06)
[2016-11-30] MEDS ORDERED: ONDANSETRON 4 MG/2 ML VIAL IVP STA (13:06)
--- NOTE | 2016-11-30 13:10 | ED ---
Nausea/Vomiting/Diarrhea HPI - General Stated complaint: Mental Health Time Seen by Provider: 11/30/16 13:00 Source: patient, family, EMS, RN notes reviewed Mode of arrival: EMS - History of Present Illness Initial comments: This is a 61-year-old female with a history of Rosenda's chorea who had for 5 episodes of diarrhea this morning it started around 5 AM. She did decrease oral intake felt weak she also did fall and hit her left forehead on the floor. No loss of consciousness no complaints of neck pain she has been combative however this morning she was uncooperative was finally able to get her medications in with family assistance she is acting better now. No other complaints no fevers chills or sweats. MD complaint: nausea, diarrhea - Related Data Home Medications Medication Instructions Recorded Confirmed Venlafaxine HCl ER [Effexor XR] 300 mg PO DAILY 12/03/15 11/30/16 Previous Rx's Medication Instructions Recorded ALPRAZolam [Xanax] 1 mg PO TID #90 10/07/16 Allergies Allergy/AdvReac Type Severity Reaction Status Date / Time Horse/Equine Containing Allergy Unknown Verified 11/30/16 14:21 Products Childhood Penicillins Allergy Unknown Verified 11/30/16 14:21 Childhood Review of Systems ROS Statement: Those systems with pertinent positive or pertinent negative responses have been documented in the HPI. ROS Other: All systems not noted in ROS Statement are negative. Past Medical History Past Medical History: Unable to Obtain, Eye Disorder, Memory Impairment, Musculoskeletal Disorder (Towns disease), Neurologic Disorder Additional Past Medical History / Comment(s): Towns's History of Any Multi-Drug Resistant Organisms: None Reported Past Surgical History: Appendectomy, Bariatric Surgery, Cholecystectomy, Hernia Repair, Hysterectomy, Orthopedic Surgery, Tubal Ligation Additional Past Surgical History / Comment(s): steel plate and screws in ankle, removed Past Anesthesia/Blood Transfusion Reactions: No Reported Reaction Past Psychological History: Anxiety Additional Psychological History / Comment(s): Positive tobacco use. No alcohol use. Cared for in the family home by the and caregivers. It is reported that is not going well. No animal exposures. No experience. No work experience Smoking Status: Current every day smoker Past Alcohol Use History: None Reported Past Drug Use History: None Reported - Past Family History Mother Additional Family Medical History / Comment(s): kidney failure obesity Father Additional Family Medical History / Comment(s): huntingtons General Exam - General Exam Comments Initial Comments: This is a well-developed well-nourished awake alert anxious appearing female with a stigmata of Rosenda's chorea General appearance: alert, anxious Head exam: Present: other (Ecchymosis and contusion noted over the left frontal bone no step-off or crepitation no tenderness over the occiput no tenderness over the neck.) Eye exam: Present: normal appearance, PERRL, EOMI. Absent: scleral icterus, conjunctival injection, periorbital swelling ENT exam: Present: mucous membranes dry Neck exam: Present: normal inspection, full ROM. Absent: tenderness, meningismus, lymphadenopathy Respiratory exam: Present: normal lung sounds bilaterally. Absent: respiratory distress, wheezes, rales, rhonchi, stridor Cardiovascular Exam: Present: regular rate, normal rhythm, normal heart sounds. Absent: systolic murmur, diastolic murmur, rubs, gallop, clicks GI/Abdominal exam: Present: soft, normal bowel sounds. Absent: distended, tenderness, guarding, rebound, rigid Rectal exam: Present: deferred Extremities exam: Present: full ROM, normal capillary refill. Absent: tenderness Back exam: Present: normal inspection Neurological exam: Present: alert, oriented X3, CN II-XII intact, other ( Movement of extremities consistent with the patient's) Psychiatric exam: Present: normal affect, normal mood Skin exam: Present: warm, dry, intact, normal color. Absent: rash Course Vital Signs 11/30/16 11/30/16 11/30/16 13:15 14:42 15:34 Temperature 96.1 F L 97.0 F L Pulse Rate 82 69 74 Respiratory 18 18 18 Rate Blood Pressure 138/86 130/76 132/98 O2 Sat by Pulse 96 97 94 L Oximetry Medical Decision Making - Medical Decision Making I did discuss findings with the patient's family. Patient still combative and somewhat altered. I did discuss case with Dr. Shah and facial be admitted for IV hydration also neurological consultation. - Lab Data Result diagrams: 11/30/16 13:12 11/30/16 13:12 Lab Results 11/30/16 11/30/16 11/30/16 Range/Units 13:12 13:12 13:33 WBC 7.3 (3.8-10.6) k/uL RBC 4.28 (3.80-5.40) m/uL Hgb 13.2 (11.4-16.0) gm/dL Hct 39.9 (34.0-46.0) % MCV 93.2 (80.0-100.0) fL MCH 30.7 (25.0-35.0) pg MCHC 32.9 (31.0-37.0) g/dL RDW 14.1 (11.5-15.5) % Plt Count 419 (150-450) k/uL Neutrophils % 65 % Lymphocytes % 24 % Monocytes % 6 % Eosinophils % 2 % Basophils % 1 % Neutrophils # 4.8 (1.3-7.7) k/uL Lymphocytes # 1.7 (1.0-4.8) k/uL Monocytes # 0.5 (0-1.0) k/uL Eosinophils # 0.2 (0-0.7) k/uL Basophils # 0.1 (0-0.2) k/uL Sodium 140 (137-145) mmol/L Potassium 4.2 (3.5-5.1) mmol/L Chloride 105 (98-107) mmol/L Carbon Dioxide 27 (22-30) mmol/L Anion Gap 8 mmol/L BUN 16 (7-17) mg/dL Creatinine 0.53 (0.52-1.04) mg/dL Est GFR (MDRD) Af Amer >60 (>60 ml/min/1.73 sqM) Est GFR (MDRD) Non-Af >60 (>60 ml/min/1.73 sqM) Glucose 90 (74-99) mg/dL Calcium 8.6 (8.4-10.2) mg/dL Total Bilirubin 0.5 (0.2-1.3) mg/dL AST 26 (14-36) U/L ALT 32 (9-52) U/L Alkaline Phosphatase 113 (38-126) U/L Total Protein 6.4 (6.3-8.2) g/dL Albumin 3.7 (3.5-5.0) g/dL Amylase 38 (30-110) U/L Lipase 169 (23-300) U/L Urine Color Light Yellow Urine Appearance Clear (Clear) Urine pH 6.0 (5.0-8.0) Ur Specific [place] 1.002 (1.001-1.035) Urine Protein Negative (Negative) Urine Glucose (UA) Negative (Negative) Urine Ketones Negative (Negative) Urine Blood Negative (Negative) Urine Nitrite Negative (Negative) Urine Bilirubin Negative (Negative) Urine Urobilinogen <2.0 (<2.0) mg/dL Ur Leukocyte Esterase Negative (Negative) - Radiology Data Radiology results: report reviewed (I did review the imaging and reports nonspecific bowel gas findings), image reviewed Disposition Clinical Impression: Metabolic encephalopathy, Diarrhea, Towns chorea, Dehydration Disposition: ADMITTED IP TO THIS [facility] Condition: Stable Referrals: Eli Lowe DO [Primary Care Provider] - 1-2 days
[2016-11-30 13:37] LABS: Basophils # (A) 0.1 k/uL (0-0.2); Basophils % (A) 1 %; CH 29.5; CHCM 31.7; Eosinophils # (A) 0.2 k/uL (0-0.7); Eosinophils % (A) 2 %; HCT 39.9 % (34.0-46.0); HDW 2.54; HGB 13.2 gm/dL (11.4-16.0); Luc # (Auto) 0.13; Luc % (Auto) 2; Lymphocytes # (A) 1.7 k/uL (1.0-4.8); Lymphocytes % (A) 24 %; MCH 30.7 pg (25.0-35.0); MCHC 32.9 g/dL (31.0-37.0); MCV 93.2 fL (80.0-100.0); Mean Platelet Volume 7.2; Monocytes # (A) 0.5 k/uL (0-1.0); Monocytes % (A) 6 %; Neutrophils # (A) 4.8 k/uL (1.3-7.7); Neutrophils % (A) 65 %; RBC 4.28 m/uL (3.80-5.40); RDW 14.1 % (11.5-15.5); WBC 7.3 k/uL (3.8-10.6)
[2016-11-30 13:43] LABS: ALT 32 U/L (9-52); AST 26 U/L (14-36); Alkaline Phosphatase 113 U/L (38-126); Amylase 38 U/L (30-110); Anion Gap 8 mmol/L; Blood Urea Nitrogen 16 mg/dL (7-17); Calcium 8.6 mg/dL (8.4-10.2); Carbon Dioxide 27 mmol/L (22-30); Chloride 105 mmol/L (98-107); Glucose 90 mg/dL (74-99); Non-African American GFR(MDRD) >60 (>60 ml/min/1.73 sqM); Potassium 4.2 mmol/L (3.5-5.1); Sodium 140 mmol/L (137-145); Total Bilirubin 0.5 mg/dL (0.2-1.3); Total Protein 6.4 g/dL (6.3-8.2)
[2016-11-30 13:45] LABS: Appearance,Urine Clear (Clear); Bilirubin,Urine Negative (Negative); Glucose,Urine (UA) Negative (Negative); Ketones,Urine Negative (Negative); Leukocyte Esterase,Urine Negative (Negative); Nitrite,Urine Negative (Negative); Protein,Urine Negative (Negative); Specific Gravity,Urine 1.002 (1.001-1.035); UA Billing (MACRO vs. MICRO) CHEM; Urobilinogen,Urine <2.0 mg/dL (<2.0)
--- NOTE | 2016-11-30 14:04 | CT ---
EXAMINATION TYPE: CT brain wo con DATE OF EXAM: 11/30/2016 COMPARISON: Prior CT brain 10/04/2016 HISTORY: Altered mental status CT DLP: 1801.5 mGycm Automated exposure control for dose reduction was used. FINDINGS: No interval change. There is no hemorrhage or hydrocephalus. Brain density is stable, ventricles show unchanged appearance. Periventricular white matter low-attenuation is again noted. Left posterior fo ssa partially calcified mass is stable and likely represents meningioma. Larger mass also in the post erior fossa on the left is not significantly calcified and measures approximately 2.9 cm similar to p rior exam. The calvarium is intact. IMPRESSION: STABLE EXAM, NO ACUTE ABNORMALITIES EVIDENT. Posterior fossa masses may represent meningiomas, better evaluated with contrast-enhanced MRI.
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
--- NOTE | 2016-11-30 14:19 | XR ---
EXAMINATION TYPE: XR KUB DATE OF EXAM: 11/30/2016 CLINICAL DATA: 61-year-old female with pain, PH[facility] COMPARISON: None FINDINGS: Lung bases are clear. No evidence for free intraperitoneal air. Gas in the central and peripheral bowel loops. Supine imaging limited for assessment of free air. Mild scattered stool. Pelvic phleboliths. The bladder is urine distended. IMPRESSION: Overall nonobstructive bowel gas pattern though there is prominent gaseous distention of both small a nd large bowel. The bladder also seems prominently urine distended.
[2016-11-30] MEDS ORDERED: NALOXONE 0.4 MG/ML 1 ML VIAL IV PRN (16:25)
[2016-11-30] MEDS: SODIUM CHLORIDE 0.9% 1,000 ML IV SCH (18:14)
[2016-11-30] MEDS: ALPRAZolam 0.5 MG TAB PO SCH (21:34)
[2016-11-30 23:34] LABS: Glucose,Whole Blood 75 mg/dL (75-99)
[2016-12-01 03:02] LABS: Glucose,Whole Blood 82 mg/dL (75-99)
[2016-12-01] MEDS: SODIUM CHLORIDE 0.9% 1,000 ML IV SCH ×3 (06:25→23:54)
[2016-12-01 06:51] LABS: Glucose,Whole Blood 65 mg/dL (75-99)
[2016-12-01 07:17] LABS: Glucose,Whole Blood 85 mg/dL (75-99)
[2016-12-01] MEDS: VENLAFAXINE HCL ER 150 MG CAP PO SCH (08:06)
[2016-12-01] MEDS: ALPRAZolam 0.5 MG TAB PO SCH ×3 (08:06→21:40)
[2016-12-01 12:10] LABS: Glucose,Whole Blood 82 mg/dL (75-99)
--- NOTE | 2016-12-01 13:21 | P.HPIM ---
History of Present Illness H&P Date: 12/01/16 Chief Complaint: Mental status changes Patient is a 61-year-old female was known history of advanced [place] chorea who was brought in to [facility] emergency room by her family due to confusion and mental status changes. Patient was having episodes of nausea vomiting and diarrhea she had poor oral intake she sustained a fall at home and hit her head on the floor there was no loss of consciousness no complaints of neck pain she was evaluated in the emergency room and was admitted to medical floor for further evaluation and treatment of her mental status changes. Computed tomography scan of the brain on presentation did not reveal any acute bleeding however there was evidence of masses in the posterior fossa possibly representing meningiomas. Neurology consultation was requested for evaluation of mental status changes, evaluation of [place] disease and evaluation of brain meningiomas. Past Medical History Past Medical History: Unable to Obtain, Eye Disorder, Hearing Disorder / Deafness, Memory Impairment, Musculoskeletal Disorder, Neurologic Disorder, Sleep Apnea/CPAP/BIPAP Additional Past Medical History / Comment(s): Rosenda's chorea,,unsteady gait /falls. wears depends episodes of incont urine/stool, History of Any Multi-Drug Resistant Organisms: None Reported Past Surgical History: Appendectomy, Bariatric Surgery, Cholecystectomy, Hernia Repair, Hysterectomy, Orthopedic Surgery, Tubal Ligation Additional Past Surgical History / Comment(s): steel plate and screws in ankle, removed, i&d abcess lower lip. Past Anesthesia/Blood Transfusion Reactions: No Reported Reaction Smoking Status: Current every day smoker - Past Family History Mother Additional Family Medical History / Comment(s): kidney failure obesity Father Additional Family Medical History / Comment(s): huntingtons Medications and Allergies Home Medications Medication Instructions Recorded Confirmed Type Venlafaxine HCl ER [Effexor XR] 300 mg PO DAILY 12/03/15 11/30/16 History Allergies Allergy/AdvReac Type Severity Reaction Status Date / Time Horse/Equine Containing Allergy Unknown Verified 11/30/16 14:21 Products Childhood Penicillins Allergy Unknown Verified 11/30/16 14:21 Childhood Physical Exam Vitals: Vital Signs Temp Pulse Pulse Pulse Resp BP BP 12/01/16 07:00 98.4 F 61 16 138/74 11/30/16 23:26 96.4 F L 71 19 113/71 11/30/16 18:09 97.8 F 73 18 120/88 11/30/16 17:34 96.8 F L 57 L 18 141/85 11/30/16 16:47 55 L 18 155/83 11/30/16 15:34 74 18 132/98 11/30/16 14:42 97.0 F L 69 18 130/76 11/30/16 13:15 96.1 F L 82 18 138/86 Pulse Ox 12/01/16 07:00 97 11/30/16 23:26 93 L 11/30/16 18:09 98 11/30/16 17:34 96 11/30/16 16:47 98 11/30/16 15:34 94 L 11/30/16 14:42 97 11/30/16 13:15 96 Intake and Output 11/30/16 12/01/16 12/01/16 22:59 06:59 14:59 Output Total 1999 Balance -1999 Output: Urine 1999 Other: Voiding Method Bedside Commode Bedside Commode Bedside Commode Incontinent Incontinent # Voids 1 0 1 # Bowel Movements 0 HEENT head normocephalic and atraumatic Neck is supple no JVD no goiter no lymphadenopathy Chest is clear to auscultation no crackles no wheezing Cardiac exam reveals regular heart sounds S1 and S2 no gallops no murmurs Abdomen is soft nontender no organomegaly with normal bowel sounds Extremity exam reveals no edema no cyanosis or clubbing Results CBC & Chem 7: 11/30/16 13:12 11/30/16 13:12 Labs: Abnormal Lab Results - Last 24 Hours (Table) 12/01/16 Range/Units 06:48 POC Glucose (mg/dL) 65 L (75-99) mg/dL Thrombosis Risk Factor Assmnt - Choose All That Apply Any of the Below Risk Factors Present?: Yes Each Factor Represents 1 point: Age 41-60 years, Obesity (BMI >25) Other Risk Factors: No Other congenital or acquired thrombophilia - If yes, enter type in comment: No Thrombosis Risk Factor Assessment Total Risk Factor Score: 2 Thrombosis Risk Factor Assessment Level: Low Risk Assessment and Plan Plan: #1 mental status changes with acute confusion, possibly related to acute encephalopathy secondary to acute gastrointestinal illness, fall with head trauma. computed tomography scan of the brain reveals evidence of posterior fossa masses otherwise no acute abnormality Patient has advanced advanced Rosenda's rebekah Neurology consult was requested #2 gastroenteritis with nausea vomiting and diarrhea, patient is being treated with IV fluid Will monitor no need for antibiotics at this time most likely viral syndrome #3 underlying history of depression maintained on Effexor XR 300 mg daily continue #4 underlying history of anxiety disorder maintained on Xanax 1 mg 3 times daily continue #5 for DVT prophylaxis we will use Lovenox 40 mg subcu once daily for GI prophylaxis we will use Pepcid All closely during this admission awaiting neurology input
--- NOTE | 2016-12-01 13:24 | CONS ---
DATE: 11-30-16 CHIEF COMPLAINT: Altered mental status and history of Rosenda's Disease. HISTORY OF PRESENT ILLNESS: The patient is a pleasant 61 year old female who is being evaluated by the Neurology Service per the request of Dr. Shah for the above mentioned complaints. The patient has hsitory of [place]'s Chorea and this is advanced. She was brought into [facility] emergency room after she had a fall with head injury without any loss of consciousness. The patient had been feeling weak and was found to be somewhat confused. She has been having significant diarrhea all day today and she was felt to be dehydrated when she arrived to the emergency room. She was given IV hydration and admitted for further workup and management. A CT scan of the brain was done which showed no acute intracranial abnormalities. Her CBC, urinalysis and comprehensive metabolic profile were reviewed and were within normal limits. At the time of my evaluation, she is resting in her bed and continues to have significant Chorea which is her baseline. She is oriented to person and place but she could not recall the year. She follows commands appropriately. She denies any headache. PAST MEDICAL HISTORY: [place]'s disease, dementia, anxiety disorder, history of appendectomy, bariatric surgery, cholecystectomy, hernia repair, hysterectomy , tubal ligation, ankle surgery. SOCIAL HISTORY: The patient is a current everyday smoker. She denies any alcohol or drug use. FAMILY HISTORY: Positive for Rosenda's disease and renal failure. REVIEW OF SYSTEMS: As mentioned above, and otherwise negative. PHYSICAL EXAM: Vital signs show a temperature of 97.8, pulse 73, respirations 18. Blood pressure 120/88. General appearance: The patient is a well developed female who has significant choreiform movements involving the upper extremities more than the lower extremities. HEENT: Normocephalic, atraumatic. Choreiform movements are notice in the facial muscles. Neck is supple with no masses felt. Cardiovascular regular rate and rhythm. Abdomen nontender and nondistended. Extremities showed no edema or clubbing. Neurological exam: The patient is awake and oriented to person and place. She could not recall the year. Choreiform movements are noticed in her extremities. She does follow commands appropriately. Sensory exam was normal to light touch in all four extremities. Language testing is normal but her speech is difficult to comprehend due to the chorea. No seizure like activity is seen. No facial asymmetry is noticed on cranial nerve testing. IMPRESSION: 1. Altered mental status. 2. Rosenda's disease. 3. Acute metabolic encephalopathy, improving. 4. Recent fall with head injury. 5. Diarrhea. RECOMMENDATIONS: The patient's recent fall was likely due to some dehydration given the extensive diarrhea that she has been experiencing. Her symptoms are improved at this time with IV hydration. Continue your workup regarding her diarrhea. She continues to have significant Chorea due to her [place]'s disease. I did discuss with her recent FDA approved medications for her symptoms and this will be revisited again in the outpatient clinic after her discharge. No further inpatient neurological workup is needed. I will continue to follow with you as needed. Thank you for allowing me to participate in the care of your patient. If you have any questions, please feel free to contact me. KRISTEN
[2016-12-01] MEDS: ENOXAPARIN 40 MG/0.4 ML SYRINGE SQ SCH (14:44)
[2016-12-01 17:02] LABS: Glucose,Whole Blood 87 mg/dL (75-99)
--- NOTE | 2016-12-01 21:20 | P.PN ---
Subjective Principal diagnosis: Altered mental status, history of [place]'s disease Neurology is following a 61-year-old female at the request of Dr. Humberto Harrington for altered mental status and history of [place]'s disease. Patient's Rosenda 's chorea has advanced. She is brought to the ED after fall with head injury without any loss of consciousness. Patient is feeling weak and was found to be somewhat confused. Patient has been known to be having significant diarrhea for the previous 24 hours and became dehydrated and debilitated. Patient was rehydrated via IV and admitted for further workup and management. CT of the brain was done which noted no acute intracranial abnormality. CBC urinalysis and CMP were reviewed and were within normal limits. At the time of evaluation and contact, patient was supine in bed with sitter at the bedside. Patient is alert and oriented to person and place. Follows verbal commands appropriately. Denies any headache. Objective - Vital Signs Vital signs: Vital Signs Temp 98.5 F 12/01/16 15:00 Pulse 80 12/01/16 15:00 Resp 16 12/01/16 15:00 BP 128/78 12/01/16 15:00 Pulse Ox 96 12/01/16 15:00 Intake & Output 12/01/16 12/01/16 12/02/16 06:59 18:59 06:59 Output Total 3500 Balance -3500 Output: Urine 3500 Other: Voiding Method Bedside Commode Bedside Commode Incontinent Incontinent # Voids 0 1 # Bowel Movements 0 - Exam Constitutional: AOx3, cooperative HEENT: NC/AT, no facial asymmetry is seen. Throat: Supple, no masses Respiratory: No increased work of breathing Cardiac: Regular rate and Rhythm GI: non tender, non distended Musculoskeletal: Patient has significant choreiform movements about the upper and lower extremities. Neurological: CN II-XII in tact, patient was AOx3, speech and language are Difficult to comprehend due to the advanced chorea., no unilateralizing weakness , no seizure activity note on physical exam. Sensation was normal. Integementary: no rash, no erythema Psychiatric: mood and affect appropriate - Labs CBC & Chem 7: 11/30/16 13:12 11/30/16 13:12 Labs: Abnormal Lab Results - Last 24 Hours (Table) 12/01/16 Range/Units 06:48 POC Glucose (mg/dL) 65 L (75-99) mg/dL Assessment and Plan (1) Altered mental status Status: Acute (2) Diarrhea Status: Acute (3) Metabolic encephalopathy Status: Acute (4) Fall Status: Acute (5) Rosenda's disease Status: Acute Plan: Patient's current hospitalization is likely due to multifactorial etiology including: Dehydration given her extensive history of diarrhea, chorea related to her [place]'s disease which has significantly advanced. Patient's symptoms have improved due to IV rehydration. Dr Tejeda has discussed previously with the patient recently approved medications for her symptoms that can be revisited outpatient after discharge. Patient is stable at this time and no further neurological workup is necessary. Status: Patient included from a neurological standpoint for discharge. Patient to follow up in our office within 10-14 days for a follow-up visit we may also discuss new or more advanced medications given her significant advancement in her [place]'s disease. I discussed the patient's pertinent medical information with Dr. Tejeda. He agrees with the plan of care as implemented.
[2016-12-01 21:41] LABS: Glucose,Whole Blood 83 mg/dL (75-99)
[2016-12-02] MEDS: SODIUM CHLORIDE 0.9% 1,000 ML IV SCH ×2 (06:56→07:33)
[2016-12-02] MEDS: FAMOTIDINE 20 MG TAB PO SCH (07:31)
[2016-12-02] MEDS: VENLAFAXINE HCL ER 150 MG CAP PO SCH (07:31)
[2016-12-02] MEDS: ALPRAZolam 0.5 MG TAB PO SCH ×3 (07:32→21:49)
[2016-12-02] MEDS: ENOXAPARIN 40 MG/0.4 ML SYRINGE SQ SCH (07:33)
[2016-12-02 07:48] LABS: Glucose,Whole Blood 84 mg/dL (75-99)
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
[2016-12-02 12:14] LABS: Glucose,Whole Blood 72 mg/dL (75-99)
[2016-12-02 17:29] LABS: Glucose,Whole Blood 130 mg/dL (75-99)
[2016-12-02 21:00] LABS: Glucose,Whole Blood 82 mg/dL (75-99)
[2016-12-02] MEDS ORDERED: HYDROmorphone 1 MG/ML 1 ML SYRINGE IVP PRN (21:24)
[2016-12-02] MEDS: ACETAMINOPHEN TAB 325 MG TAB PO PRN (21:49)
[2016-12-03 07:37] LABS: Glucose,Whole Blood 81 mg/dL (75-99)
[2016-12-03] MEDS: ENOXAPARIN 40 MG/0.4 ML SYRINGE SQ SCH (07:49)
[2016-12-03] MEDS: ALPRAZolam 0.5 MG TAB PO SCH ×3 (07:49→22:02)
[2016-12-03] MEDS: VENLAFAXINE HCL ER 150 MG CAP PO SCH (07:49)
[2016-12-03] MEDS: FAMOTIDINE 20 MG TAB PO SCH (07:49)
[2016-12-03 08:04] LABS: Basophils # (A) 0.1 k/uL (0-0.2); Basophils % (A) 1 %; CH 29.2; CHCM 31.1; Eosinophils # (A) 0.3 k/uL (0-0.7); Eosinophils % (A) 3 %; HCT 39.4 % (34.0-46.0); HDW 2.44; HGB 12.5 gm/dL (11.4-16.0); Hypochromasia Slight; Luc # (Auto) 0.13; Luc % (Auto) 1; Lymphocytes # (A) 1.8 k/uL (1.0-4.8); Lymphocytes % (A) 17 %; MCH 30.1 pg (25.0-35.0); MCHC 31.9 g/dL (31.0-37.0); MCV 94.3 fL (80.0-100.0); Mean Platelet Volume 7.1; Monocytes # (A) 0.6 k/uL (0-1.0); Monocytes % (A) 6 %; Neutrophils # (A) 7.6 k/uL (1.3-7.7); Neutrophils % (A) 73 %; RBC 4.17 m/uL (3.80-5.40); WBC 10.4 k/uL (3.8-10.6); WBC (Perox) 10.73
[2016-12-03 08:21] LABS: Anion Gap 5 mmol/L; Blood Urea Nitrogen 9 mg/dL (7-17); Calcium 8.5 mg/dL (8.4-10.2); Carbon Dioxide 32 mmol/L (22-30); Chloride 104 mmol/L (98-107); Glucose 68 mg/dL (74-99); Non-African American GFR(MDRD) >60 (>60 ml/min/1.73 sqM); Potassium 4.3 mmol/L (3.5-5.1); Sodium 141 mmol/L (137-145)
[2016-12-03 11:23] LABS: Glucose,Whole Blood 74 mg/dL (75-99)
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
[2016-12-03] MEDS: ACETAMINOPHEN TAB 325 MG TAB PO PRN (22:02)
[2016-12-04] MEDS: ALPRAZolam 0.5 MG TAB PO SCH ×3 (07:53→22:18)
[2016-12-04] MEDS: ACETAMINOPHEN TAB 325 MG TAB PO PRN ×2 (07:53→16:06)
[2016-12-04] MEDS: ENOXAPARIN 40 MG/0.4 ML SYRINGE SQ SCH (07:54)
[2016-12-04] MEDS: VENLAFAXINE HCL ER 150 MG CAP PO SCH (07:54)
[2016-12-04] MEDS: FAMOTIDINE 20 MG TAB PO SCH (07:54)
[2016-12-04 09:01] LABS: Anion Gap 7 mmol/L; Blood Urea Nitrogen 12 mg/dL (7-17); Carbon Dioxide 30 mmol/L (22-30); Chloride 105 mmol/L (98-107); Glucose 103 mg/dL (74-99); Non-African American GFR(MDRD) >60 (>60 ml/min/1.73 sqM); Potassium 4.2 mmol/L (3.5-5.1); Sodium 142 mmol/L (137-145)
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
[2016-12-05] MEDS: ACETAMINOPHEN TAB 325 MG TAB PO PRN ×4 (01:00→22:15)
[2016-12-05] MEDS: VENLAFAXINE HCL ER 150 MG CAP PO SCH (08:19)
[2016-12-05] MEDS: FAMOTIDINE 20 MG TAB PO SCH (08:19)
[2016-12-05] MEDS: ENOXAPARIN 40 MG/0.4 ML SYRINGE SQ SCH ×2 (08:19→08:28)
[2016-12-05] MEDS: ALPRAZolam 0.5 MG TAB PO SCH ×3 (08:20→22:15)
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
[2016-12-06] MEDS: ENOXAPARIN 40 MG/0.4 ML SYRINGE SQ SCH (09:40)
[2016-12-06] MEDS: FAMOTIDINE 20 MG TAB PO SCH (09:40)
[2016-12-06] MEDS: ACETAMINOPHEN TAB 325 MG TAB PO PRN ×2 (09:40→21:43)
[2016-12-06] MEDS: ALPRAZolam 0.5 MG TAB PO SCH ×3 (09:40→21:43)
[2016-12-06] MEDS: VENLAFAXINE HCL ER 150 MG CAP PO SCH (09:40)
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
[2016-12-06 10:53] LABS: Basophils # (A) 0.1 k/uL (0-0.2); Basophils % (A) 0 %; CH 29.5; CHCM 30.9; Eosinophils # (A) 0.3 k/uL (0-0.7); Eosinophils % (A) 2 %; HCT 41.4 % (34.0-46.0); HDW 2.33; Hypochromasia Slight; Luc # (Auto) 0.09; Luc % (Auto) 1; Lymphocytes # (A) 0.8 k/uL (1.0-4.8); Lymphocytes % (A) 5 %; MCH 30.1 pg (25.0-35.0); MCHC 31.3 g/dL (31.0-37.0); Monocytes # (A) 0.6 k/uL (0-1.0); Monocytes % (A) 4 %; Neutrophils # (A) 12.1 k/uL (1.3-7.7); Neutrophils % (A) 87 %; RBC 4.31 m/uL (3.80-5.40); RDW 14.3 % (11.5-15.5); WBC 13.9 k/uL (3.8-10.6); WBC (Perox) 13.78
[2016-12-06] MEDS: traMADol 50 MG TAB PO PRN ×2 (12:35→17:12)
[2016-12-06] MEDS: CLINDAMYCIN 150 MG CAP PO SCH ×3 (12:35→21:43)
[2016-12-07] MEDS: traMADol 50 MG TAB PO PRN ×2 (06:06→18:59)
[2016-12-07] MEDS: FAMOTIDINE 20 MG TAB PO SCH (07:58)
[2016-12-07] MEDS: CLINDAMYCIN 150 MG CAP PO SCH ×3 (07:58→22:05)
[2016-12-07] MEDS: ALPRAZolam 0.5 MG TAB PO SCH ×3 (07:58→22:05)
[2016-12-07] MEDS: VENLAFAXINE HCL ER 150 MG CAP PO SCH (07:59)
[2016-12-07] MEDS: ENOXAPARIN 40 MG/0.4 ML SYRINGE SQ SCH (07:59)
[2016-12-07 09:15] LABS: Basophils # (A) 0.1 k/uL (0-0.2); Basophils % (A) 1 %; CH 29.8; CHCM 31.1; Eosinophils # (A) 0.3 k/uL (0-0.7); Eosinophils % (A) 3 %; HCT 40.5 % (34.0-46.0); HDW 2.29; HGB 12.6 gm/dL (11.4-16.0); Hypochromasia Slight; Luc # (Auto) 0.19; Luc % (Auto) 2; Lymphocytes # (A) 1.7 k/uL (1.0-4.8); Lymphocytes % (A) 17 %; MCH 29.8 pg (25.0-35.0); MCV 96.1 fL (80.0-100.0); Mean Platelet Volume 7.2; Monocytes # (A) 0.9 k/uL (0-1.0); Monocytes % (A) 9 %; Neutrophils % (A) 69 %; RBC 4.21 m/uL (3.80-5.40); RDW 14.2 % (11.5-15.5); WBC 10.1 k/uL (3.8-10.6)
[2016-12-07 09:29] LABS: Anion Gap 7 mmol/L; Blood Urea Nitrogen 11 mg/dL (7-17); Calcium 8.7 mg/dL (8.4-10.2); Carbon Dioxide 28 mmol/L (22-30); Chloride 104 mmol/L (98-107); Glucose 63 mg/dL (74-99); Non-African American GFR(MDRD) >60 (>60 ml/min/1.73 sqM); Potassium 4.3 mmol/L (3.5-5.1); Sodium 139 mmol/L (137-145)
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
[2016-12-08] MEDS: CLINDAMYCIN 150 MG CAP PO SCH ×3 (08:18→21:51)
[2016-12-08] MEDS: ENOXAPARIN 40 MG/0.4 ML SYRINGE SQ SCH (08:18)
[2016-12-08] MEDS: ALPRAZolam 0.5 MG TAB PO SCH ×3 (08:18→21:51)
[2016-12-08] MEDS: FAMOTIDINE 20 MG TAB PO SCH (08:18)
[2016-12-08] MEDS: VENLAFAXINE HCL ER 150 MG CAP PO SCH (08:18)
[2016-12-08 08:24] LABS: Basophils # (A) 0.1 k/uL (0-0.2); Basophils % (A) 1 %; CH 29.8; CHCM 31.2; Eosinophils # (A) 0.5 k/uL (0-0.7); Eosinophils % (A) 6 %; HCT 43.8 % (34.0-46.0); HDW 2.33; HGB 13.5 gm/dL (11.4-16.0); Hypochromasia Slight; Luc # (Auto) 0.25; Luc % (Auto) 3; Lymphocytes # (A) 2.4 k/uL (1.0-4.8); Lymphocytes % (A) 29 %; MCH 29.6 pg (25.0-35.0); MCHC 30.9 g/dL (31.0-37.0); MCV 95.9 fL (80.0-100.0); Mean Platelet Volume 7.4; Monocytes # (A) 0.8 k/uL (0-1.0); Monocytes % (A) 10 %; Neutrophils # (A) 4.3 k/uL (1.3-7.7); Neutrophils % (A) 51 %; RBC 4.56 m/uL (3.80-5.40); RDW 14.3 % (11.5-15.5); WBC 8.3 k/uL (3.8-10.6); WBC (Perox) 8.18
[2016-12-08 08:43] LABS: Anion Gap 6 mmol/L; Blood Urea Nitrogen 14 mg/dL (7-17); Calcium 9.1 mg/dL (8.4-10.2); Carbon Dioxide 31 mmol/L (22-30); Chloride 105 mmol/L (98-107); Glucose 75 mg/dL (74-99); Non-African American GFR(MDRD) >60 (>60 ml/min/1.73 sqM); Sodium 142 mmol/L (137-145)
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
[2016-12-09 08:12] LABS: Basophils # (A) 0.1 k/uL (0-0.2); Basophils % (A) 1 %; CH 29.9; CHCM 31.4; Eosinophils # (A) 0.4 k/uL (0-0.7); Eosinophils % (A) 7 %; HCT 40.9 % (34.0-46.0); HDW 2.37; HGB 13.3 gm/dL (11.4-16.0); Luc % (Auto) 3; Lymphocytes # (A) 2.1 k/uL (1.0-4.8); Lymphocytes % (A) 32 %; MCH 31.1 pg (25.0-35.0); MCHC 32.5 g/dL (31.0-37.0); MCV 95.6 fL (80.0-100.0); Mean Platelet Volume 7.7; Monocytes # (A) 0.5 k/uL (0-1.0); Monocytes % (A) 8 %; Neutrophils # (A) 3.1 k/uL (1.3-7.7); Neutrophils % (A) 49 %; RBC 4.28 m/uL (3.80-5.40); RDW 14.4 % (11.5-15.5); WBC 6.4 k/uL (3.8-10.6); WBC (Perox) 6.26
[2016-12-09] MEDS: ALPRAZolam 0.5 MG TAB PO SCH ×3 (08:17→21:10)
[2016-12-09] MEDS: CLINDAMYCIN 150 MG CAP PO SCH ×3 (08:17→21:10)
[2016-12-09] MEDS: VENLAFAXINE HCL ER 150 MG CAP PO SCH (08:17)
[2016-12-09] MEDS: ENOXAPARIN 40 MG/0.4 ML SYRINGE SQ SCH (08:17)
[2016-12-09] MEDS: FAMOTIDINE 20 MG TAB PO SCH (08:17)
[2016-12-09 08:18] LABS: Anion Gap 6 mmol/L; Blood Urea Nitrogen 17 mg/dL (7-17); Carbon Dioxide 31 mmol/L (22-30); Chloride 106 mmol/L (98-107); Glucose 78 mg/dL (74-99); Non-African American GFR(MDRD) >60 (>60 ml/min/1.73 sqM); Potassium 4.5 mmol/L (3.5-5.1); Sodium 143 mmol/L (137-145)
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
[2016-12-10] MEDS: traMADol 50 MG TAB PO PRN (00:07)
[2016-12-10] MEDS: FAMOTIDINE 20 MG TAB PO SCH (08:48)
[2016-12-10] MEDS: ALPRAZolam 0.5 MG TAB PO SCH ×3 (08:48→21:46)
[2016-12-10] MEDS: CLINDAMYCIN 150 MG CAP PO SCH ×3 (08:48→21:47)
[2016-12-10] MEDS: VENLAFAXINE HCL ER 150 MG CAP PO SCH (08:49)
[2016-12-10] MEDS: ENOXAPARIN 40 MG/0.4 ML SYRINGE SQ SCH (08:49)
[2016-12-10 09:33] LABS: Basophils # (A) 0.1 k/uL (0-0.2); Basophils % (A) 1 %; CH 29.5; CHCM 29.4; Eosinophils # (A) 0.4 k/uL (0-0.7); Eosinophils % (A) 5 %; HCT 43.8 % (34.0-46.0); HGB 13.4 gm/dL (11.4-16.0); Hypochromasia Marked; Luc % (Auto) 2; Lymphocytes # (A) 2.5 k/uL (1.0-4.8); Lymphocytes % (A) 30 %; MCH 30.7 pg (25.0-35.0); MCHC 30.5 g/dL (31.0-37.0); Macrocytosis Slight; Mean Platelet Volume 8.4; Monocytes # (A) 0.7 k/uL (0-1.0); Monocytes % (A) 8 %; Neutrophils # (A) 4.3 k/uL (1.3-7.7); Neutrophils % (A) 53 %; RBC 4.35 m/uL (3.80-5.40); RDW 14.7 % (11.5-15.5); WBC 8.1 k/uL (3.8-10.6); WBC (Perox) 7.74
[2016-12-10 09:34] LABS: MCV 100.7 fL (80.0-100.0)
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
[2016-12-10] MEDS: ACETAMINOPHEN TAB 325 MG TAB PO PRN (18:50)
--- NOTE | 2016-12-11 11:08 | P.PN ---
Subjective Patient is doing fairly well today. No events overnight. Objective - Vital Signs Vital signs: Vital Signs Temp 96.7 F L 12/11/16 07:00 Pulse 60 12/11/16 07:00 Resp 16 12/11/16 07:00 BP 147/71 12/11/16 07:00 Pulse Ox 96 12/11/16 07:00 Intake & Output 12/10/16 12/11/16 12/11/16 18:59 06:59 18:59 Intake Total 150 Output Total 2 Balance 148 Weight 55.2 kg Intake: Oral 150 Output: Stool 2 Other: Voiding Method Bedside Commode Bedside Commode Diaper Diaper Incontinent Incontinent # Voids 1 1 # Bowel Movements 0 - Exam General: The patient is awake and alert, in no distress Eye: there is normal conjunctiva bilaterally. Neck: The neck is supple, there is no JVD. Cardiovascular: Normal S1-S2, no S3-S4, no murmurs. Respiratory: Lungs clear to auscultation bilaterally Gastrointestinal: Abdomen is soft, nontender Musculoskeletal: There is no pedal edema. Skin: Skin is warm and dry - Labs CBC & Chem 7: 12/10/16 08:36 12/09/16 07:45 Assessment and Plan Plan: #1 mental status changes with acute confusion, possibly related to acute encephalopathy secondary to acute gastrointestinal illness, fall with head trauma. computed tomography scan of the brain reveals evidence of posterior fossa masses otherwise no acute abnormality Patient has advanced advanced [place]'s rebekah Patient evaluated by neurology. They'll follow up with her outpatient and at that point discuss further new medications for the [place]'s disease. #2 gastroenteritis with nausea vomiting and diarrhea. Now resolved. Continue with current diet. #3 underlying history of depression maintained on Effexor XR 300 mg daily continue #4 underlying history of anxiety disorder maintained on Xanax 1 mg 3 times daily continue #5 for DVT prophylaxis we will use Lovenox 40 mg subcu once daily for GI prophylaxis we will use Pepcid #6 gingivitis with infection started on oral Cleocin Patient is awaiting placement possibly on Tuesday. Social work and patient's guardian for any communication about placement for patient
[2016-12-11] MEDS: FAMOTIDINE 20 MG TAB PO SCH (12:32)
[2016-12-11] MEDS: VENLAFAXINE HCL ER 150 MG CAP PO SCH (12:32)
[2016-12-11] MEDS: CLINDAMYCIN 150 MG CAP PO SCH ×3 (12:32→22:12)
[2016-12-11] MEDS: ENOXAPARIN 40 MG/0.4 ML SYRINGE SQ SCH (12:32)
[2016-12-11] MEDS: ALPRAZolam 0.5 MG TAB PO SCH ×3 (12:32→20:44)
[2016-12-12] MEDS: VENLAFAXINE HCL ER 150 MG CAP PO SCH (09:06)
[2016-12-12] MEDS: FAMOTIDINE 20 MG TAB PO SCH (09:07)
[2016-12-12] MEDS: ENOXAPARIN 40 MG/0.4 ML SYRINGE SQ SCH (09:07)
[2016-12-12] MEDS: ALPRAZolam 0.5 MG TAB PO SCH ×3 (09:07→21:16)
[2016-12-12] MEDS: CLINDAMYCIN 150 MG CAP PO SCH ×3 (09:07→21:16)
--- NOTE | 2016-12-12 15:38 | P.PN ---
Subjective Patient is doing fairly well today. No events overnight. Objective - Vital Signs Vital signs: Vital Signs Temp 97.8 F 12/12/16 07:00 Pulse 61 12/12/16 07:00 Resp 18 12/12/16 07:00 BP 106/58 12/12/16 07:00 Pulse Ox 94 L 12/11/16 23:00 Intake & Output 12/11/16 12/12/16 12/12/16 18:59 06:59 18:59 Intake Total 600 Balance 600 Weight 57 kg Intake: Oral 600 Other: Voiding Method Bedside Commode Diaper Incontinent # Voids 1 0 2 # Bowel Movements 0 - Exam General: The patient is awake and alert, in no distress Eye: there is normal conjunctiva bilaterally. Neck: The neck is supple, there is no JVD. Cardiovascular: Normal S1-S2, no S3-S4, no murmurs. Respiratory: Lungs clear to auscultation bilaterally Gastrointestinal: Abdomen is soft, nontender Musculoskeletal: There is no pedal edema. Skin: Skin is warm and dry - Labs CBC & Chem 7: 12/10/16 08:36 12/09/16 07:45 Assessment and Plan Plan: #1 mental status changes with acute confusion, possibly related to acute encephalopathy secondary to acute gastrointestinal illness, fall with head trauma. computed tomography scan of the brain reveals evidence of posterior fossa masses otherwise no acute abnormality Patient has advanced advanced [place]'s rebekah Patient evaluated by neurology. They'll follow up with her outpatient and at that point discuss further new medications for the Rosenda's disease. #2 gastroenteritis with nausea vomiting and diarrhea. Now resolved. Continue with current diet. #3 underlying history of depression maintained on Effexor XR 300 mg daily continue #4 underlying history of anxiety disorder maintained on Xanax 1 mg 3 times daily continue #5 for DVT prophylaxis we will use Lovenox 40 mg subcu once daily for GI prophylaxis we will use Pepcid #6 gingivitis with infection started on oral Cleocin Patient is awaiting placement possibly on Tuesday. Social work and patient's guardian for any communication about placement for patient
[2016-12-12] MEDS: traMADol 50 MG TAB PO PRN (17:21)
[2016-12-13] MEDS: ALPRAZolam 0.5 MG TAB PO SCH ×3 (09:03→21:21)
[2016-12-13] MEDS: ENOXAPARIN 40 MG/0.4 ML SYRINGE SQ SCH (09:04)
[2016-12-13] MEDS: ACETAMINOPHEN TAB 325 MG TAB PO PRN (09:04)
[2016-12-13] MEDS: CLINDAMYCIN 150 MG CAP PO SCH ×3 (09:04→21:21)
[2016-12-13] MEDS: FAMOTIDINE 20 MG TAB PO SCH (09:04)
[2016-12-13] MEDS: VENLAFAXINE HCL ER 150 MG CAP PO SCH (09:04)
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
[2016-12-13] MEDS ORDERED: DOCUSATE 100 MG CAP PO PRN (17:14)
[2016-12-13] MEDS ORDERED: LACTULOSE 20 GM/30 ML CUP PO ONE (17:14)
[2016-12-13] MEDS: traMADol 50 MG TAB PO PRN (21:21)
[2016-12-14] MEDS: FAMOTIDINE 20 MG TAB PO SCH (08:53)
[2016-12-14] MEDS: CLINDAMYCIN 150 MG CAP PO SCH ×3 (08:53→21:22)
[2016-12-14] MEDS: VENLAFAXINE HCL ER 150 MG CAP PO SCH (08:53)
[2016-12-14] MEDS: ENOXAPARIN 40 MG/0.4 ML SYRINGE SQ SCH (08:54)
[2016-12-14] MEDS: ALPRAZolam 0.5 MG TAB PO SCH ×3 (09:10→21:22)
[2016-12-14 15:50] VITALS: BMI 26.5
--- NOTE | 2016-12-14 19:26 | P.PN ---
Subjective Patient is a 61-year-old female was known history of advanced [place] chorea who was brought in to [facility] emergency room by her family due to confusion and mental status changes. Patient was having episodes of nausea vomiting and diarrhea she had poor oral intake she sustained a fall at home and hit her head on the floor there was no loss of consciousness no complaints of neck pain she was evaluated in the emergency room and was admitted to medical floor for further evaluation and treatment of her mental status changes. Computed tomography scan of the brain on presentation did not reveal any acute bleeding however there was evidence of masses in the posterior fossa possibly representing meningiomas. Neurology consultation was requested for evaluation of mental status changes, evaluation of [place] disease and evaluation of brain meningiomas. Patient's mentation has returned to baseline. She'll follow-up with neurology outpatient for further discussion regarding new medications available for [place]'s disease. Vomiting and diarrhea have resolved. Patient is awaiting possible ECF placement On 12/14/2016 patient lying comfortably in bed denies any pain or discomfort walking in hallway earlier with help Objective - Vital Signs Vital signs: Vital Signs Temp 97.6 F 12/14/16 14:59 Pulse 61 12/14/16 14:59 Resp 16 12/14/16 14:59 BP 129/55 12/14/16 14:59 Pulse Ox 97 12/14/16 14:59 Intake & Output 12/14/16 12/14/16 12/15/16 06:59 18:59 06:59 Intake Total 750 Balance 750 Weight 65.771 kg 65.771 kg Intake: Oral 750 Other: Voiding Method Bedside Commode Diaper Incontinent # Voids 3 1 # Bowel Movements 3 1 - Exam In general patient is alert and oriented 3 in no apparent distress HEENT head normocephalic and atraumatic Neck is supple no JVD no goiter no lymphadenopathy no carotid bruit Chest exam reveals a crackles in both bases no wheezing Cardiac exam reveals regular heart sounds S1 and S2 no gallops no murmurs Abdomen is soft nontender no organomegaly was normal bowel sounds Extremities exam reveals no edema no cyanosis or clubbing - Labs CBC & Chem 7: 12/10/16 08:36 12/09/16 07:45 Assessment and Plan Plan: #1 mental status changes with acute confusion, possibly related to acute encephalopathy secondary to acute gastrointestinal illness, fall with head trauma. computed tomography scan of the brain reveals evidence of posterior fossa masses otherwise no acute abnormality Patient has advanced advanced [place]'s rebekah #2 gastroenteritis with nausea vomiting and diarrhea, patient was treated with IV fluid Will monitor no need for antibiotics at this time most likely viral syndrome #3 underlying history of depression maintained on Effexor XR 300 mg daily continue #4 underlying history of anxiety disorder maintained on Xanax 1 mg 3 times daily continue #5 for DVT prophylaxis we will use Lovenox 40 mg subcu once daily for GI prophylaxis we will use Pepcid #6 gingivitis with infection treated with oral Cleocin will continue to monitor Continue with current management social workers and case management following awaiting resolution of social issues for discharge.
[2016-12-14] MEDS: traMADol 50 MG TAB PO PRN (22:29)
[2016-12-15] MEDS: ACETAMINOPHEN TAB 325 MG TAB PO PRN (01:23)
[2016-12-15] MEDS: ENOXAPARIN 40 MG/0.4 ML SYRINGE SQ SCH (10:56)
[2016-12-15] MEDS: CLINDAMYCIN 150 MG CAP PO SCH ×3 (10:57→20:05)
[2016-12-15] MEDS: ALPRAZolam 0.5 MG TAB PO SCH ×3 (10:57→20:05)
[2016-12-15] MEDS: VENLAFAXINE HCL ER 150 MG CAP PO SCH (10:57)
[2016-12-15] MEDS: FAMOTIDINE 20 MG TAB PO SCH (10:57)
--- NOTE | 2016-12-15 17:30 | P.PN ---
Subjective Patient is a 61-year-old female was known history of advanced [place] chorea who was brought in to [facility] emergency room by her family due to confusion and mental status changes. Patient was having episodes of nausea vomiting and diarrhea she had poor oral intake she sustained a fall at home and hit her head on the floor there was no loss of consciousness no complaints of neck pain she was evaluated in the emergency room and was admitted to medical floor for further evaluation and treatment of her mental status changes. Computed tomography scan of the brain on presentation did not reveal any acute bleeding however there was evidence of masses in the posterior fossa possibly representing meningiomas. Neurology consultation was requested for evaluation of mental status changes, evaluation of [place] disease and evaluation of brain meningiomas. Patient's mentation has returned to baseline. She'll follow-up with neurology outpatient for further discussion regarding new medications available for [place]'s disease. Vomiting and diarrhea have resolved. Patient is awaiting possible ECF placement On 12/14/2016 patient lying comfortably in bed denies any pain or discomfort walking in hallway earlier with help Objective - Vital Signs Vital signs: Vital Signs Temp 96.5 F L 12/15/16 14:43 Pulse 85 12/15/16 14:43 Resp 18 12/15/16 14:43 BP 111/59 12/15/16 14:43 Pulse Ox 96 12/15/16 14:43 Intake & Output 12/14/16 12/15/16 12/15/16 18:59 06:59 18:59 Weight 65.771 kg 62.737 kg Other: Voiding Method Bedside Commode Diaper Diaper Incontinent Incontinent # Voids 1 2 2 # Bowel Movements 1 0 - Exam In general patient is alert and oriented 3 in no apparent distress HEENT head normocephalic and atraumatic Neck is supple no JVD no goiter no lymphadenopathy no carotid bruit Chest exam reveals a crackles in both bases no wheezing Cardiac exam reveals regular heart sounds S1 and S2 no gallops no murmurs Abdomen is soft nontender no organomegaly was normal bowel sounds Extremities exam reveals no edema no cyanosis or clubbing - Labs CBC & Chem 7: 12/10/16 08:36 12/09/16 07:45 Assessment and Plan Plan: #1 mental status changes with acute confusion, possibly related to acute encephalopathy secondary to acute gastrointestinal illness, fall with head trauma. computed tomography scan of the brain reveals evidence of posterior fossa masses otherwise no acute abnormality Patient has advanced advanced [place]'s rebekah #2 gastroenteritis with nausea vomiting and diarrhea, patient was treated with IV fluid Will monitor no need for antibiotics at this time most likely viral syndrome #3 underlying history of depression maintained on Effexor XR 300 mg daily continue #4 underlying history of anxiety disorder maintained on Xanax 1 mg 3 times daily continue #5 for DVT prophylaxis we will use Lovenox 40 mg subcu once daily for GI prophylaxis we will use Pepcid #6 gingivitis with infection treated with oral Cleocin will continue to monitor Continue with current management social workers and case management following awaiting resolution of social issues for discharge. Case management working on arrangements for discharge, possible discharge tomorrow on 12/16/2016
[2016-12-15] MEDS: traMADol 50 MG TAB PO PRN (20:05)
[2016-12-16 03:29] VITALS: TEMP 97
[2016-12-16] MEDS: ALPRAZolam 0.5 MG TAB PO SCH (08:09)
[2016-12-16] MEDS: CLINDAMYCIN 150 MG CAP PO SCH (08:09)
[2016-12-16] MEDS: VENLAFAXINE HCL ER 150 MG CAP PO SCH (08:09)
[2016-12-16] MEDS: FAMOTIDINE 20 MG TAB PO SCH (08:10)
[2016-12-16] MEDS: ENOXAPARIN 40 MG/0.4 ML SYRINGE SQ SCH (08:13)
[2016-12-16 09:27] VITALS: BP 116/58; PULSE 76; RESP 16
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
== END 2016-12-16 13:11 | DRG 391 ==
LOC: EC 12:57 → 4MS4W 16:25
PROVIDERS: ADMIT Internal Medicine; ATTEND Internal Medicine
DX: K52.9 Noninfective gastroenteritis and colitis, unspecified (principal); G93.41 Metabolic encephalopathy; G10 Huntington's disease; F03.90 Unspecified dementia, unspecified severity, without behavioral disturbance, psychotic disturbance, mood disturbance, and anxiety; S09.90XA Unspecified injury of head, initial encounter; E86.0 Dehydration; F17.200 Nicotine dependence, unspecified, uncomplicated; G47.30 Sleep apnea, unspecified; H91.90 Unspecified hearing loss, unspecified ear; K05.10 Chronic gingivitis, plaque induced; W19.XXXA Unspecified fall, initial encounter; Z88.0 Allergy status to penicillin; Z88.8 Allergy status to other drugs, medicaments and biological substances; Z98.84 Bariatric surgery status; R41.3 Other amnesia; M54.2 Cervicalgia; R32 Unspecified urinary incontinence; F41.9 Anxiety disorder, unspecified
CPT/HCPCS: 36415; 70450; 71020; 74000; 80048; 80053; 81003; 82150; 83690; 85025; 96361; 96374; 99285